=== PATIENT | female | born 1995 | race Two or more races ===

== ENCOUNTER 2020-05-09 03:23 | Emergency (ER) | payer MEDICAID, SELFPAY ==
[2020-05-09 04:38] VITALS: PULSE 70; RESP 18; TEMP 36.8; O2SAT 99; BMI 50.8
[2020-05-09 04:49] VITALS: BP 105/50
--- NOTE | 2020-05-09 04:54 | ED_ITS ---
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 this morning and patient states it is sharp and intermittent. She states that when the pain is strongest it is associated with nausea, dizzy, chills. Otherwise, she states she is currently menstruating and denies any urinary pain/ burning /frequency. She denies having similar symptoms in the past or any history of renal colic. Related Data Allergies Allergy/AdvReac Type Severity Reaction Status Date / Time No Known Allergies Allergy Unverified 04/03/20 17:49 Pt states no food/medication Allergy Unknown Uncoded 09/14/16 00:00 a Review of Systems Review of Systems Pertinent positives and negatives as stated in HPI 10 point review systems is otherwise negative. Physical Exam Vital Signs: Vital Signs: Vital Signs Temp Pulse Resp BP Pulse Ox 05/09/20 04:49 105/50 L 05/09/20 04:38 98.2 F 70 18 99 Body Mass Index 50.8 VITAL SIGNS: Reviewed. GENERAL: Well developed, well nourished, in no acute distress. HEAD: Normocephalic/atraumatic, EYES: PERRLA, EOMI intact without pain, no nystagmus/pallor/icterus noted EARS: Ext canals without abnormality, TMs non-bulging and non-erythematous NOSE: Nares patent bilateral OROPHARYNX: no oral lesions noted, posterior pharynx clear and non-erythematous without noted tonsillar enlargement/erythema/exudates NECK: Supple, no adenopathy LUNGS: Normal breath sounds. No adventitious sounds or accessory muscle use. SpO2<99> CARDIOVASCULAR: Regular rate and rhythm without noted murmurs, no JVD or lower extremity edema. ABDOMEN: obese, Soft, tenderness along the lower abdomen however maximal at right lower quadrant, non-distended with bowel sounds. No rigidity. No guarding. No palpable masses or hernias noted MUSCULOSKELETAL: No tenderness, deformities, or effusions noted on gross inspection. EXTREMITIES: No cyanosis, clubbing or edema. SKIN: Inspection of the skin reveals no rashes, ulcerations, jaundice, pallor, or petechiae. NEUROLOGIC: Alert and oriented x 4. Strength and sensation to light touch were grossly intact x 4. Course Course Course Narrative: This is a 25-year-old female with history and clinical presentation suggestive possible acute appendicitis, renal colic, but felt to be less likely diverticulitis / ectopic. On review of all investigations there is very slight leukocytosis with left shift, but no source identified on review of urinalysis or CT scan. There was a small amount of nonspecific free fluid in the right lower quadrant but appendix is read as normal and patient is currently menstruating, but possibility a stone that has passed or small ruptured ovarian cyst but the latter is less likely. On re-evaluation patient's pain has improved significantly and all results were discussed with her at bedside. She is stable for discharge to home with instructions to treat her pain with [id number] Tylenol and ibuprofen and provided with strict return precautions regarding fevers or worsening abdominal pain. MDM - Abdominal Pain Lab Data Result diagrams: 05/09/20 05:39 05/09/20 05:39 Labs: Lab Results 05/09/20 05/09/20 05/09/20 Range/Units 05:39 05:39 05:39 WBC 11.2 H (4.8-10.8) X10*3/uL RBC 4.42 (4.20-5.50) X10*6/uL Hgb 11.3 L (12.0-16.0) g/dl Hct 37.6 (37-47) % MCV 85.1 (80-98) fL MCH 25.6 L (27.0-33.0) pg MCHC 30.1 L (31.0-35.0) g/dl RDW 13.8 (11.0-16.0) % Plt Count 425 H (160-400) X10*3/uL MPV 9.4 (9.4-12.3) fL Immature Gran % (Auto) 0.3 (0.0-0.4) % Neut % (Auto) 86.0 H (45-73) % Lymph % (Auto) 9.0 L (20-40) % [place] % (Auto) 4.2 (2-11) % Eos % (Auto) 0.2 (0-4) % Baso % (Auto) 0.3 (0-2) % Lymph # (Auto) 1.0 L (1.2-4.9) X10*3/uL [place] # (Auto) 0.5 (0.1-1.2) X10*3/uL Eos # (Auto) 0.0 (0.0-0.4) X10*3/uL Baso # (Auto) 0.0 (0.0-0.2) X10*3/uL Abs Immat Gran (auto) 0.03 (0.00-0.03) X10*3/uL Absolute Neuts (auto) 9.7 H (2.0-8.3) X10*3/uL Absolute Nucleated RBC 0.000 (0.0-0.012) X10*3/uL Nucleated RBC % (auto) 0.0 (0.0-0.2) /100WBC Sodium 137 (135-145) mmol/L Potassium 4.4 (3.3-5.1) mmol/l Chloride 103 (96-108) mmol/L Carbon Dioxide 26 (22-29) mmol/L Anion Gap 12 (12-20) BUN 11 (9-16) mg/dL Creatinine 0.75 (0.5-1.4) mg/dL Estim Creat Clear Calc 153.9 Estimated GFR > 60 Random Glucose 125 H (60-115) mg/dL Calcium 9.0 (8.4-10.2) mg/dL Total Bilirubin 0.2 (0.0-1.0) mg/dL AST 16 (5-31) U/L ALT 14 (0-31) U/L Alkaline Phosphatase 138 H (39-117) U/L Total Protein 7.5 (6.5-8.0) g/dL Albumin 4.2 (3.5-5.0) g/dL Beta HCG, Quant < 2 mIU/mL Urine Color YELLOW Urine Appearance CLOUDY Urine pH 5.5 (5.0-8.0) Ur Specific [place] >= 1.030 H (1.005-1.025) Urine Protein NEG (NEG-TRACE) MG/DL Urine Glucose (UA) NEG (NEG) MG/DL Urine Ketones NEG (NEG) MG/DL Urine Blood 2+ H (NEG) Urine Nitrite NEG (NEG) Ur Leukocyte Esterase NEG (NEG) Urine RBC 76-150 H (0) /HPF Urine WBC 0-2 (0-4) /HPF Ur Squamous Epith Cells TRACE /LPF Urine Bacteria TRACE /LPF Urine Test NEGATIVE (NEGATIVE) Discharge Plan Discharge Clinical Impression: Abdominal pain in female Patient Disposition: Home, Self-Care Additional Instructions: 1. Tylenol 1000 mg, por v?a oral, cada 6 horas seg?n sea necesario para controlar el dolor. No exceda los 4000 mg en 24 horas. 2. ibuprofeno 400 mg, por v?a oral con leche o alimentos, cada 6 horas seg?n sea necesario para controlar el dolor. El paciente y / o la felicia reconocen que comprenden los resultados (seg?n corresponda), el diagn?stico, el plan de tratamiento, la necesidad de seguim iento y los s?ntomas que deber?an impulsar el regreso a la carmen de emergencias. Referrals: Lia Rosas MD [Primary Care Provider] - 2 days (Abdominal discomfort without CT findings.) [facility] Past Medical History Source: nursing notes reviewed Medical History Asthma Surgical History S/P cholecystectomy Social History Social History Alcohol intake: never Smoking Status: Never smoker Advance Directives: No
[2020-05-09 05:45] LABS: MANUAL DIFF FLAG NO
[2020-05-09 05:47] LABS: Basophils Percent Auto 0.3 % (0-2); Eosinophils Percent Auto 0.2 % (0-4); Hematocrit 37.6 % (37-47); Hemoglobin 11.3 g/dl (12.0-16.0); Imm Gran Abs Auto 0.03 X10*3/uL (0.00-0.03); Imm Gran Pct Auto 0.3 % (0.0-0.4); Mean Corpuscular HGB Conc 30.1 g/dl (31.0-35.0); Mean Corpuscular Hemoglobin 25.6 pg (27.0-33.0); Mean Corpuscular Volume 85.1 fL (80-98); Mean Platelet Volume 9.4 fL (9.4-12.3); Monocytes Absolute Auto 0.5 X10*3/uL (0.1-1.2); Monocytes Percent Auto 4.2 % (2-11); Neutrophils Absolute Auto 9.7 X10*3/uL (2.0-8.3); Platelet Count 425 X10*3/uL (160-400); Red Blood Count 4.42 X10*6/uL (4.20-5.50); Red Cell Distribution Width 13.8 % (11.0-16.0); White Blood Count 11.2 X10*3/uL (4.8-10.8)
--- NOTE | 2020-05-09 05:50 | PC.NURSE ---
IV ACCESS OBTAINED, BLOOD SPEC AND URINE SAMPLE SENT TO LAB FOR PROCESSING. URINE DARK YELLOW, CLEAR, NO SEDIMENT NOTED.
[2020-05-09 05:54] LABS: Glucose Urine UA NEG (NEG); Leukocyte Esterase Urine NEG (NEG); Nitrite Urine NEG (NEG); PH 5.5 (5.0-8.0); Specific Gravity - Urine >= 1.030 (1.005-1.025); Urine Blood 2+ (NEG); Urine Ketones NEG (NEG); Urine Protein NEG (NEG-TRACE)
[2020-05-09 05:58] LABS: Appearance Urine CLOUDY; Color Urine YELLOW
[2020-05-09 06:18] LABS: Bacteria Urine TRACE /LPF; Squamous Epithelial Cell Urine TRACE /LPF; UPreg QC Valid YES; Urine Pregnancy NEGATIVE (NEGATIVE); WBC Urine 0-2 /HPF (0-4)
[2020-05-09 06:23] LABS: Alanine Aminotransferase 14 U/L (0-31); Albumin Level 4.2 g/dL (3.5-5.0); Alkaline Phosphatase 138 U/L (39-117); Anion Gap 12 (12-20); Aspartate Amino Transferase 16 U/L (5-31); Bilirubin Total 0.2 mg/dL (0.0-1.0); Blood Urea Nitrogen 11 mg/dL (9-16); Carbon Dioxide 26 mmol/L (22-29); Chloride 103 mmol/L (96-108); Creatinine Clr Calc Pharmacy 153.9; Estimated Glomerular Filt Rate > 60; Glucose Random 125 mg/dL (60-115); Potassium 4.4 mmol/l (3.3-5.1); Sodium 137 mmol/L (135-145); Total Protein 7.5 g/dL (6.5-8.0)
--- NOTE | 2020-05-09 06:26 | CT_ITS ---
EXAMINATION: CT ABDOMEN AND PELVIS WITHOUT CONTRAST CLINICAL INFORMATION: Left flank pain COMPARISON: 01/08/2015 TECHNIQUE: Multidetector volumetric imaging was performed from the superior aspect of the liver through the pubic symphysis. Sagittal and coronal reformatted images were obtained on the technologist's workstation. This CT examination was performed using dose optimization techniques as appropriate, variously including the following: *Automated exposure control *Adjustment of mA and/or kV according to patient size (this includes techniques or standardized protocols for targeted exams where dose is matched to indication/reason for exam; i.e. extremities or head) *Use of iterative reconstruction technique DLP: 1208 mGy-cm FINDINGS: LUNG BASES: The visualized lung bases are unremarkable. LIVER, GALLBLADDER, AND BILIARY TREE: The liver is normal in size, shape, and attenuation. No focal hepatic lesion or biliary ductal dilatation is present. Patient is status post cholecystectomy. PANCREAS: Unremarkable. SPLEEN: Unremarkable. ADRENAL GLANDS: Unremarkable. KIDNEYS AND URETERS: The kidneys are normal in size, shape, and attenuation. No hydronephrosis, hydroureter, or calculi seen. No perinephric stranding. BLADDER: Unremarkable. GASTROINTESTINAL TRACT: The small and large bowel are unremarkable. The appendix is unremarkable. Small amount of fluid is present in the right lower quadrant. No free air is seen. ABDOMINAL WALL: No significant hernia is appreciated. LYMPH NODES: Normal. VASCULAR: Unremarkable. PELVIC VISCERA: Redemonstrated fibroid uterus, suboptimally assessed without intravenous contrast. OSSEOUS STRUCTURES: Unremarkable. CT/CT abdomen pelvis wo con IMPRESSION: 1. No left-sided hydronephrosis or calculus. 2. Small amount of nonspecific free fluid in the right lower quadrant, of uncertain etiology. 3. Fibroid uterus.
[2020-05-09 06:31] LABS: HCG Quantitative < 2 mIU/mL
[2020-05-09 07:57] VITALS: BP 126/57; PULSE 77; RESP 15; TEMP 36.7; O2SAT 99
== END 2020-05-09 09:00 | disposition home or self-care (01) ==
PROVIDERS: Emergency Provider Student in an Organized Health Care Education/Training Program; PCP Family Medicine
DX: R10.30 Lower abdominal pain, unspecified (principal)
CPT/HCPCS: 36415; 74176; 80053; 81001; 81003; 81025; 84702; 85025; 99284

== ENCOUNTER 2020-06-09 10:24 | Outpatient (REF) | payer MEDICAID, SELFPAY ==
[2020-06-09 14:16] LABS: CT PCR NOT DETECTED (Not Detect.); NG PCR NOT DETECTED (Not Detect.)
== END 2020-06-09 10:25 | disposition home or self-care (01) ==
LOC: HO.LAB 10:24
PROVIDERS: PCP Internal Medicine; Visit Provider Obstetrics & Gynecology
DX: D21.9 Benign neoplasm of connective and other soft tissue, unspecified (principal); N92.1 Excessive and frequent menstruation with irregular cycle
CPT/HCPCS: 87491; 87591; 99212

== ENCOUNTER 2020-07-21 13:32 | Outpatient (REF) | payer MEDICAID, SELFPAY ==
--- NOTE | 2020-07-21 13:35 | US_ITS ---
EXAMINATION: US PELVIS COMPLETE US TRANSVAGINAL CLINICAL INFORMATION: Excessive and frequent menstruation with irregular cycle. COMPARISON: None TECHNIQUE: Transabdominal and transvaginal ultrasound of the pelvis. FINDINGS: The uterus is retroverted and anteflexed with multiple hypoechoic lesions consistent with fibroids that measure, as follows. 1. Lesion in the right fundus measures 5.9 x 5.2 x 6.2 cm. Previously, it measured 2.8 x 2.3 x 2.9 cm. 2. Lesion in the left fundus measures 5.3 x 5.8 x 6.0 cm. Previously, it measured 3.0 x 3.2 x 3.2 cm. 3. Lesion in the right posterior body of the uterus measures 4.9 x 3.8 x 3.7 cm. Previously, it measured 5.4 x 4.4 x 5.3 cm. 4. Lesion in the left posterior body of the uterus measures 4.0 x 2.8 x 4.3 cm. Previously, measured 5.5 x 3.7 x 4.7 cm. Endometrial thickness is 0.9 cm. There is an arcuate appearance of the endometrium. Right ovary measures 3.1 x 2.2 x 2.6 cm and volume 9.2 mL. Previously, it measured 4.0 x 2.4 x 2.2 cm and volume 11.1 mL. Left ovary measures 4.2 x 2.3 x 3.1 cm and volume 15.4 mL. Previously, it measured 4.4 x 1.9 x 2.2 cm and volume 9.8 mL. There is a small corpus luteal cyst measuring 2.3 x 1.9 x 2.3 cm. There is no free fluid in the cul-de-sac. US/US pelvic complete IMPRESSION: Multiple uterine fibroids. Previously seen #3 fibroid is not seen today. Corpus luteal cyst left ovary. The right ovary is unremarkable.
== END 2020-07-21 13:33 | disposition home or self-care (01) ==
LOC: HO.US 13:32
PROVIDERS: Visit Provider Obstetrics & Gynecology
DX: D21.9 Benign neoplasm of connective and other soft tissue, unspecified (principal); N92.1 Excessive and frequent menstruation with irregular cycle
CPT/HCPCS: 76830; 76856

== ENCOUNTER → 2020-09-02 11:59 | Outpatient (BNVA) | payer MEDICAID, SELFPAY | PROVIDERS: PCP Internal Medicine; Visit Provider Obstetrics & Gynecology | DX: D21.9 Benign neoplasm of connective and other soft tissue, unspecified (principal); N92.1 Excessive and frequent menstruation with irregular cycle | CPT/HCPCS: 99212 ==

== ENCOUNTER → 2020-11-26 14:07 | Outpatient (BNVA) | payer MEDICAID, SELFPAY | PROVIDERS: Visit Provider Obstetrics & Gynecology | DX: O99.341 Other mental disorders complicating pregnancy, first trimester (principal); F41.9 Anxiety disorder, unspecified; D21.9 Benign neoplasm of connective and other soft tissue, unspecified; J45.909 Unspecified asthma, uncomplicated | CPT/HCPCS: 99212 ==

== ENCOUNTER 2020-11-27 13:46 | Outpatient (REF) | payer MEDICAID, SELFPAY ==
--- NOTE | ~2020-11-27 | US_ITS ---
EXAMINATION: US OBSTETRICAL ULTRASOUND CLINICAL INFORMATION: First trimester for dating. COMPARISON: None. LMP: 10/16/2020. TECHNIQUE: Transabdominal ultrasound imaging of the pelvis is performed. FINDINGS: On transabdominal ultrasound the uterus is anteverted. There is no intrauterine gestational sac or pole seen. The endometrium is thickened measuring 3.4 cm. There is anechoic cyst in the left ovary measuring 2.3 x 2.4 x 2.0 cm, likely corpus luteal cyst. There is additional anechoic area in the left adnexa measuring 1.3 x 1.3 x 0.7 cm with adjacent distal reaction suspicious for ectopic . There is no free fluid. US/US OB <= 14 weeks fetus IMPRESSION: No intrauterine visualized. There is a left ovary and cyst. There is a left adnexal sac with decidual reaction suspicious for an ectopic. Results were called to referring physician Dr Jeffrey Cabral by the technologist.
[2020-11-27 17:01] LABS: HCG Quantitative 725 mIU/mL
== END 2020-11-27 13:47 | disposition home or self-care (01) ==
LOC: HO.US 13:46
PROVIDERS: PCP Internal Medicine; Visit Provider Obstetrics & Gynecology
DX: Z34.90 Encounter for supervision of normal pregnancy, unspecified, unspecified trimester (principal)
CPT/HCPCS: 36415; 76801; 84443; 84702

== ENCOUNTER → 2020-11-28 10:12 | Outpatient (BNVA) | payer MEDICAID, SELFPAY | PROVIDERS: Visit Provider Obstetrics & Gynecology | DX: Z32.00 Encounter for pregnancy test, result unknown (principal) | CPT/HCPCS: 99212 ==

== ENCOUNTER 2020-11-29 08:43 | Outpatient (REF) | payer MEDICAID, SELFPAY ==
[2020-11-29 09:48] LABS: HCG Quantitative 978 mIU/mL
== END 2020-11-29 08:44 | disposition home or self-care (01) ==
LOC: HO.LAB 08:43
PROVIDERS: PCP Internal Medicine; Visit Provider Obstetrics & Gynecology
DX: Z32.00 Encounter for pregnancy test, result unknown (principal)
CPT/HCPCS: 36415; 84702

== ENCOUNTER 2020-12-01 08:30 | Outpatient (REF) | payer MEDICAID, SELFPAY ==
--- NOTE | ~2020-12-01 | US_ITS ---
EXAMINATION: FIRST TRIMESTER OB ULTRASOUND CLINICAL INFORMATION: Question ectopic COMPARISON: Previous OB ultrasound 11/27/[address] of the abdomen and pelvis April 2020 and pelvic ultrasound July 2020 TECHNIQUE: Transabdominal and transvaginal first trimester OB ultrasound. Transvaginal exam was performed for better visualization of the uterus and ovaries. FINDINGS: The uterus is enlarged and measures 12 x 8.2 x 10 cm in dimension. There is a solid mass exophytic to the right uterine fundus suggestive of a pedunculated fibroid that measures 7.8 x 5.8 x 9.4 cm. There is a second posterior uterine body 4.4 x 3.4 x 3.8 cm fibroid. There appears to be an arcuate type uterus. Endometrial thickness measures 1.5 cm. No intrauterine is seen. The right ovary is not seen. The left ovary measures 3.7 x 3.4 x 2.7 cm. There is a 2.7 x 2.7 x 2.3 cm left ovarian cyst. In between the left ovary and uterus there is a complex thick-walled adnexal cyst with very bright echogenic wall that measures 1.8 x 1.7 x 1.6 cm. This is increased in size from 1 x 0.9 x 0.8 cm. This is avascular. There is a small amount of fluid seen in the left pelvis which is new. US/US OB pelvic and transvaginal IMPRESSION: Enlarged fibroid uterus. No intrauterine seen. Interval increase in size in thick-walled left adnexal cyst measuring 1.8 x 1.7 x 1.6 cm questionable for ectopic . New small amount of fluid in the left pelvis.
[2020-12-01 10:11] LABS: HCG Quantitative 1557 mIU/mL
[2020-12-01 13:57] LABS: Hematocrit 37.9 % (37-47); Hemoglobin 11.7 g/dl (12.0-16.0); Mean Corpuscular HGB Conc 30.9 g/dl (31.0-35.0); Mean Corpuscular Hemoglobin 27.2 pg (27.0-33.0); Mean Corpuscular Volume 88.1 fL (80-98); Mean Platelet Volume 9.1 fL (9.4-12.3); Platelet Count 383 X10*3/uL (160-400); Red Cell Distribution Width 15.2 % (11.0-16.0); White Blood Count 7.5 X10*3/uL (4.8-10.8)
[2020-12-01 14:31] LABS: Alanine Aminotransferase 37 U/L (0-31); Aspartate Amino Transferase 25 U/L (5-31); Estimated Glomerular Filt Rate > 60
[2020-12-01 14:38] LABS: HCG Quantitative 1552 mIU/mL
== END 2020-12-01 08:31 | disposition home or self-care (01) ==
LOC: HO.LAB 08:30
PROVIDERS: PCP Internal Medicine; Visit Provider Obstetrics & Gynecology
DX: N83.202 Unspecified ovarian cyst, left side (principal)
CPT/HCPCS: 36415; 76801; 76817; 82565; 84450; 84460; 84702; 85027; 86850; 86900; 86901; 99212

== ENCOUNTER 2021-04-07 13:20 | Outpatient (REF) | payer MEDICAID, SELFPAY | END 2021-04-07 13:21 | disposition home or self-care (01) | LOC: HO.LAB 13:20 | PROVIDERS: PCP Internal Medicine; Visit Provider Advanced Practice Midwife | DX: Z01.419 Encounter for gynecological examination (general) (routine) without abnormal findings (principal) | CPT/HCPCS: 88142 ==

== ENCOUNTER 2021-04-28 10:17 | Outpatient (REF) | payer MEDICAID, SELFPAY ==
--- NOTE | ~2021-04-28 | XR_ITS ---
EXAMINATION: XR HIP, LEFT CLINICAL INFORMATION: Left hip pain. COMPARISON: Most recent CT abdomen/pelvis dated 05/09/2020. TECHNIQUE: Two views of the left hip. FINDINGS: No fracture or dislocation. No joint space narrowing or marginal osteophytes. No osseous erosion. No abnormal soft tissue calcification. XR/XR hip LT min 2V IMPRESSION: Unremarkable examination.
== END 2021-04-28 10:18 | disposition home or self-care (01) ==
LOC: HO.XRAY 10:17
PROVIDERS: PCP Internal Medicine; Visit Provider Internal Medicine
DX: M25.552 Pain in left hip (principal)
CPT/HCPCS: 73502

== ENCOUNTER 2021-11-09 21:26 | Emergency (ER) | payer MEDICAID, SELFPAY ==
[2021-11-09 21:32] VITALS: BP 143/85; PULSE 94; RESP 18; TEMP 36.6; O2SAT 100; BMI 49.8
[2021-11-09 22:00] LABS: Basophils Percent Auto 0.5 % (0-2); Eosinophils Absolute Auto 0.1 X10*3/uL (0.0-0.4); Eosinophils Percent Auto 1.4 % (0-4); Hematocrit 39.3 % (37.0-47.0); Hemoglobin 12.8 g/dl (12.0-16.0); Imm Gran Abs Auto 0.03 X10*3/uL (0.00-0.03); Imm Gran Pct Auto 0.3 % (0.0-0.4); Lymphocytes Absolute Auto 2.4 X10*3/uL (1.2-4.9); Lymphocytes Percent Auto 27.6 % (20-40); MANUAL DIFF FLAG NO; Mean Corpuscular HGB Conc 32.6 g/dl (31.0-35.0); Mean Corpuscular Hemoglobin 29.8 pg (27.0-33.0); Mean Corpuscular Volume 91.6 fL (80.0-98.0); Mean Platelet Volume 9.5 fL (9.4-12.3); Monocytes Absolute Auto 0.7 X10*3/uL (0.1-1.2); Monocytes Percent Auto 8.2 % (2-11); Neutrophils Absolute Auto 5.3 x10*3/uL (2.0-8.3); Platelet Count 386 X10*3/uL (160-400); Red Blood Count 4.29 X10*6/uL (4.20-5.50); Red Cell Distribution Width 12.2 % (11.0-16.0); White Blood Count 8.6 X10*3/uL (4.8-10.8)
[2021-11-09 22:01] LABS: Appearance Urine HAZY; Color Urine YELLOW; Glucose Urine UA NEG (NEG); Leukocyte Esterase Urine 1+ (NEG); Nitrite Urine NEG (NEG); UACC Culture Trigger YES; Urine Blood 2+ (NEG); Urine Ketones NEG (NEG); Urine Protein NEG (NEG-TRACE)
[2021-11-09 22:15] LABS: Alanine Aminotransferase 12 U/L (0-31); Alkaline Phosphatase 139 U/L (39-117); Anion Gap 10 (12-20); Aspartate Amino Transferase 14 U/L (5-31); Bilirubin Total 0.2 mg/dL (0.0-1.0); Blood Urea Nitrogen 12 mg/dL (9-16); Calcium 9.6 mg/dL (8.4-10.2); Carbon Dioxide 30 mmol/L (22-29); Chloride 104 mmol/L (96-108); Creatinine Clr Calc Pharmacy 154.7; Estimated Glomerular Filt Rate > 60; Glucose Random 104 mg/dL (60-115); Potassium 3.9 mmol/L (3.3-5.1); Sodium 140 mmol/L (135-145); Total Protein 7.2 g/dL (6.5-8.0)
[2021-11-09 22:18] LABS: RBC Urine 50-75 /HPF (0); UACC CULT YES
[2021-11-09 22:19] LABS: Bacteria Urine TRACE /LPF; Squamous Epithelial Cell Urine TRACE /LPF
--- NOTE | 2021-11-09 22:43 | ED.GENADULT ---
HPI - General Adult General Chief complaint: General Medical Stated complaint: pain in lower back Time Seen by Provider: 11/09/21 22:43 Source: patient Mode of arrival: ambulatory Limitations: no limitations History of Present Illness HPI narrative: Patient has been having lower back pain for last 2 - 3 days got worse today along with has some problem in urination no frequency no blood in the urine no history of kidney stone patient currently on her period no fever no chills pain dull ache radiating the front slight nausea no vomiting no diarrhea Related Data Home Medications Medication Instructions Recorded Confirmed clonazepam 1 mg tablet 1 mg PO BEDTIME 06/09/20 04/07/21 trazodone 100 mg tablet 100 mg PO DAILY 11/26/20 04/07/21 fluoxetine 20 mg capsule 40 mg PO DAILY 04/07/21 04/07/21 Previous Rx's Medication Instructions Recorded vit no.95-ferrous 1 tab PO DAILY #30 tab 04/07/21 fumarate 28 mg-folic acid 800 mcg tablet () cefpodoxime 200 mg tablet 200 mg PO BID #14 tab 11/09/21 tramadol 50 mg tablet 50 mg PO Q6H PRN #20 tab 11/09/21 Allergies Allergy/AdvReac Type Severity Reaction Status Date / Time No Known Allergies Allergy Verified 11/09/21 21:32 Review of Systems Review of Systems: Yes all other systems are reviewed and are negative REPLACED BY [facility] Past Medical History Medical History Asthma Insomnia Obesity Surgical History S/P cholecystectomy Social History Social History Alcohol intake: never Advance Directives: No Advance Directives Information Provided: No Patient : No Sexual orientation: Straight/Heterosexual Gender identity: Female Physical Exam ED Vital Signs: Vital Signs - 24 hr 11/09/21 21:32 Temperature 97.9 F Pulse Rate 94 Respiratory Rate 18 Blood Pressure 143/85 H Pulse Oximetry 100 BMI result Body Mass Index 49.8 Appearance: Alert. Oriented X3. No acute distress. ENT: Pharynx normal. Oral Mucosa moist Neck: Normal inspection. Neck supple. CVS: Normal heart rate and rhythm. Pulses normal. Respiratory: No respiratory distress. Equal air entry bilateral, no wheezing/rales/rhonchi Abdomen: Soft and nontender. Bowel sounds are present, no mass palpable, no CVA tenderness Skin: Skin warm and dry. Normal skin color. Normal skin turgor. back: No focal spinal tenderness diffuse lumbar paraspinal tenderness good range of movement SLR negative bilaterally Extremities: No lower extremity edema. No calf tenderness Neuro: Oriented X 3. Medical Decision Making MDM Narrative Medical decision making narrative: Patient not significant back pain urine showed few WBCs along with red cells with request is positive likely she has mild UTI will discharge patient home on Cefpodoxime Lab Data Lab results reviewed: Yes I reviewed the patient's lab results. Result diagrams: 11/09/21 21:43 11/09/21 21:43 Labs: Lab Results 11/09/21 11/09/21 11/09/21 Range/Units 21:43 21:43 21:43 WBC 8.6 (4.8-10.8) X10*3/uL RBC 4.29 (4.20-5.50) X10*6/uL Hgb 12.8 (12.0-16.0) g/dl Hct 39.3 (37.0-47.0) % MCV 91.6 (80.0-98.0) fL MCH 29.8 (27.0-33.0) pg MCHC 32.6 (31.0-35.0) g/dl RDW 12.2 (11.0-16.0) % Plt Count 386 (160-400) X10*3/uL MPV 9.5 (9.4-12.3) fL Immature Gran % (Auto) 0.3 (0.0-0.4) % Neut % (Auto) 62.0 (45-73) % Lymph % (Auto) 27.6 (20-40) % [place] % (Auto) 8.2 (2-11) % Eos % (Auto) 1.4 (0-4) % Baso % (Auto) 0.5 (0-2) % Lymph # (Auto) 2.4 (1.2-4.9) X10*3/uL [place] # (Auto) 0.7 (0.1-1.2) X10*3/uL Eos # (Auto) 0.1 (0.0-0.4) X10*3/uL Baso # (Auto) 0.0 (0.0-0.2) X10*3/uL Abs Immat Gran (auto) 0.03 (0.00-0.03) X10*3/uL Absolute Neuts (auto) 5.3 (2.0-8.3) x10*3/uL Absolute Nucleated RBC 0.000 (0.0-0.012) X10*3/uL Nucleated RBC % (auto) 0.0 (0.0-0.2) /100WBC Sodium 140 (135-145) mmol/L Potassium 3.9 (3.3-5.1) mmol/L Chloride 104 (96-108) mmol/L Carbon Dioxide 30 H (22-29) mmol/L Anion Gap 10 L (12-20) BUN 12 (9-16) mg/dL Creatinine 0.73 (0.5-1.4) mg/dL Estim Creat Clear Calc 154.7 Estimated GFR > 60 Random Glucose 104 (60-115) mg/dL Calcium 9.6 D (8.4-10.2) mg/dL Total Bilirubin 0.2 (0.0-1.0) mg/dL AST 14 D (5-31) U/L ALT 12 (0-31) U/L Alkaline Phosphatase 139 H (39-117) U/L Total Protein 7.2 (6.5-8.0) g/dL Albumin 4.0 (3.5-5.0) g/dL Urine Color YELLOW Urine Appearance HAZY Urine pH 6.0 (5.0-8.0) Ur Specific [place] 1.020 (1.005-1.025) Urine Protein NEG (NEG-TRACE) MG/DL Urine Glucose (UA) NEG (NEG) MG/DL Urine Ketones NEG (NEG) MG/DL Urine Blood 2+ H (NEG) Urine Nitrite NEG (NEG) Ur Leukocyte Esterase 1+ H (NEG) Urine RBC 50-75 H (0) /HPF Urine WBC 10-14 H (0-4) /HPF Ur Squamous Epith Cells TRACE /LPF Urine Bacteria TRACE /LPF Urine Test (NEGATIVE) 11/09/21 Range/Units 21:43 WBC (4.8-10.8) X10*3/uL RBC (4.20-5.50) X10*6/uL Hgb (12.0-16.0) g/dl Hct (37.0-47.0) % MCV (80.0-98.0) fL MCH (27.0-33.0) pg MCHC (31.0-35.0) g/dl RDW (11.0-16.0) % Plt Count (160-400) X10*3/uL MPV (9.4-12.3) fL Immature Gran % (Auto) (0.0-0.4) % Neut % (Auto) (45-73) % Lymph % (Auto) (20-40) % [place] % (Auto) (2-11) % Eos % (Auto) (0-4) % Baso % (Auto) (0-2) % Lymph # (Auto) (1.2-4.9) X10*3/uL [place] # (Auto) (0.1-1.2) X10*3/uL Eos # (Auto) (0.0-0.4) X10*3/uL Baso # (Auto) (0.0-0.2) X10*3/uL Abs Immat Gran (auto) (0.00-0.03) X10*3/uL Absolute Neuts (auto) (2.0-8.3) x10*3/uL Absolute Nucleated RBC (0.0-0.012) X10*3/uL Nucleated RBC % (auto) (0.0-0.2) /100WBC Sodium (135-145) mmol/L Potassium (3.3-5.1) mmol/L Chloride (96-108) mmol/L Carbon Dioxide (22-29) mmol/L Anion Gap (12-20) BUN (9-16) mg/dL Creatinine (0.5-1.4) mg/dL Estim Creat Clear Calc Estimated GFR Random Glucose (60-115) mg/dL Calcium (8.4-10.2) mg/dL Total Bilirubin (0.0-1.0) mg/dL AST (5-31) U/L ALT (0-31) U/L Alkaline Phosphatase (39-117) U/L Total Protein (6.5-8.0) g/dL Albumin (3.5-5.0) g/dL Urine Color Urine Appearance Urine pH (5.0-8.0) Ur Specific [place] (1.005-1.025) Urine Protein (NEG-TRACE) MG/DL Urine Glucose (UA) (NEG) MG/DL Urine Ketones (NEG) MG/DL Urine Blood (NEG) Urine Nitrite (NEG) Ur Leukocyte Esterase (NEG) Urine RBC (0) /HPF Urine WBC (0-4) /HPF Ur Squamous Epith Cells /LPF Urine Bacteria /LPF Urine Test NEGATIVE (NEGATIVE) Discharge Plan Discharge Clinical Impression: UTI (urinary tract infection), Back pain Patient Disposition: Home, Self-Care Instructions: Urinary Tract Infection in Women (ED), Acute Low Back Pain (ED) Additional Instructions: Drink plenty of fluids Take antibiotics as prescribed Pain medication as prescribed Follow with PCP if not better Prescriptions: New cefpodoxime 200 mg tablet 200 mg PO BID Qty: 14 0RF Rx Instructions: must administer with a meal/food tramadol 50 mg tablet 50 mg PO Q6H PRN (Reason: pain) Qty: 20 0RF No Action clonazepam 1 mg tablet 1 mg PO BEDTIME 0RF Rx Instructions: administer 30 minutes before bedtime trazodone 100 mg tablet 100 mg PO DAILY 0RF fluoxetine 20 mg capsule 40 mg PO DAILY 0RF PNV cmb#95-ferrous fumarate-FA [] 28 mg iron- 800 mcg tablet 1 tab PO DAILY Qty: 30 11RF Interventions: ED Discharge Assessment Last Done: 11/09/21 23:48 Discharge Date/Time: 11/09/21 23:48
[2021-11-09 23:32] LABS: UPreg QC Valid YES; Urine Pregnancy NEGATIVE (NEGATIVE)
[2021-11-09] MEDS: Ibuprofen 600 MG TABLET PO (23:33)
== END 2021-11-09 23:48 | disposition home or self-care (01) ==
PROVIDERS: Emergency Provider Internal Medicine; PCP Internal Medicine
DX: N39.0 Urinary tract infection, site not specified (principal); M54.50 Low back pain, unspecified; R33.9 Retention of urine, unspecified; Z79.899 Other long term (current) drug therapy
CPT/HCPCS: 36415; 80053; 81001; 81025; 85025; 87086; 87088; 87186; 99283

== ENCOUNTER 2021-11-11 08:24 | Emergency (ER) | payer MEDICAID, SELFPAY ==
--- NOTE | ~2021-11-11 | CT_ITS ---
EXAMINATION: CT ABDOMEN AND PELVIS WITH CONTRAST CLINICAL INFORMATION: Severe lower abdominal pain. COMPARISON: 05/09/2020 CT scan of the abdomen and pelvis. TECHNIQUE: Multidetector volumetric images were obtained from the superior aspect of the liver through the pubic symphysis following administration 85 mL of Omnipaque 350 intravenous contrast. Sagittal and coronal reformatted images were obtained on the technologist's workstation. Oral contrast: No This CT examination was performed using dose optimization techniques as appropriate, variously including the following: *Automated exposure control *Adjustment of mA and/or kV according to patient size (this includes techniques or standardized protocols for targeted exams where dose is matched to indication/reason for exam; i.e. extremities or head) *Use of iterative reconstruction technique DLP: 1626 mGy-cm FINDINGS: LUNG BASES: The visualized lung bases are unremarkable. LIVER, GALLBLADDER, AND BILIARY TREE: No hepatic abnormality. Status post cholecystectomy. PANCREAS: Unremarkable. SPLEEN: Unremarkable. ADRENAL GLANDS: Unremarkable. KIDNEYS AND URETERS: The kidneys are normal in size, shape, and attenuation. No hydronephrosis, hydroureter, or calculi seen. No perinephric stranding. BLADDER: Unremarkable. GASTROINTESTINAL TRACT: The stomach, small bowel and appendix are unremarkable. The colon and rectum are unremarkable. ABDOMINAL WALL: No significant hernia is appreciated. LYMPH NODES: No lymphadenopathy. VASCULAR: Unremarkable. PELVIC VISCERA: Enlarged fibroid uterus without significant change. Large subserosal fibroid off of the left anterior fundus is again seen demonstrating similar size measuring approximately 7.1 x 5.0 x 7.1 cm (image 77, series 3; image 129, series 6). No significant adnexal abnormality. OSSEOUS STRUCTURES: Unremarkable. CT/CT abdomen pelvis w con IMPRESSION: 1. No acute intra-abdominal/pelvic abnormality to explain the patient's pain. 2. Enlarged fibroid uterus without significant change could be a source of the patient's discomfort. Fleischner guidelines were followed.
--- NOTE | 2021-11-11 08:41 | ED_ITS ---
HPI - Abdominal Pain General Chief Complaint: Abdominal Pain Stated Complaint: Abd pain Time Seen by Provider: 11/11/21 08:41 Source: patient Mode of arrival: ambulatory Limitations: no limitations History of Present Illness HPI narrative: 26 y/o female with recently diagnosed UTI 11/09 coming back to the ER with wo rsening lower abdominal pain. She was prescribed cefpodoxime and reports she has been taking it as prescribed. She states she has mild residual dysuria but overall improving. She reports last night she started having waves of severe pain in her lower abdomen, radiate across from the right to the left. She states they are severe 10/10 and sharp. She denies vomiting or diarrhea but reports nausea. LMP last week. Denies vaginal discharge or concern for STI. MD elicited complaint: abdominal pain Pertinent past history: past UTI Onset (ago): day(s) (1) Pain Consistency: intermittent Location: RLQ and LLQ Severity: severe Pain scale (0-10): 10 Quality: cramping and sharp Radiation: none Migration to: no migration Exacerbating factors: nothing Relieving factors: nothing Associated symptoms: nausea Related Data Date of Last Menstrual Period: 11/01/21 Home Medications Medication Instructions Recorded Confirmed clonazepam 1 mg tablet 1 mg PO BEDTIME 06/09/20 04/07/21 trazodone 100 mg tablet 100 mg PO DAILY 11/26/20 04/07/21 fluoxetine 20 mg capsule 40 mg PO DAILY 04/07/21 04/07/21 Previous Rx's Medication Instructions Recorded vit no.95-ferrous 1 tab PO DAILY #30 tab 04/07/21 fumarate 28 mg-folic acid 800 mcg tablet () cefpodoxime 200 mg tablet 200 mg PO BID #14 tab 11/09/21 tramadol 50 mg tablet 50 mg PO Q6H PRN #20 tab 11/09/21 naproxen 500 mg tablet 500 mg PO BID PRN #14 tab 11/11/21 Allergies Allergy/AdvReac Type Severity Reaction Status Date / Time No Known Allergies Allergy Verified 11/11/21 08:54 Review of Systems Review of Systems Constitutional: No Fever, No Chills ENT/Mouth: No sore throat, No Rhinorrhea, No Swallowing Difficulty Eyes: No Eye Pain, No Swelling, No Redness Cardiovascular: No Chest Pain, No SOB, No Orthopnea, No Edema Respiratory: No Cough, No Sputum, No Wheezing, No dyspnea Gastrointestinal: + Nausea, No Vomiting, No Diarrhea, + abdominal Pain, No Hematochezia, No Melena Genitourinary: + Dysuria, No Urinary Frequency, No Hematuria Musculoskeletal: No joint pain, No Myalgias Skin: No Skin Lesions, No rash Neuro: No Weakness, No Numbness, No Dizziness, No Headache Psych: No Anxiety/Panic, No Depression Heme/Lymph: No Bruising, No Lymphadenopathy Endocrine: No Polyuria, No Polydipsia [facility] Past Medical History Medical History Asthma Insomnia Obesity Surgical History S/P cholecystectomy Date of Last Menstrual Period: 11/01/21 Social History Social History Alcohol intake: never Advance Directives: No Advance Directives Information Provided: No Sexual orientation: Straight/Heterosexual Gender identity: Female Physical Exam ED Vital Signs: Vital Signs - 24 hr 11/11/21 08:55 11/11/21 09:08 11/11/21 12:00 Temperature 98.2 F 98.0 F Pulse Rate 88 87 66 Respiratory Rate 20 16 16 Blood Pressure 134/85 127/63 125/63 Pulse Oximetry 98 99 100 BMI result Body Mass Index 49.8 Course Course Course Narrative: 26 y/o female with recently diagnosed UTI presenting with worsening lower abdominal pain since yesterday. Nauseated but not vomiting or having diarrhea, no fever or chills. Reevaluation(s) Reevaluation #1: UA improving. Labs unremarkable. CT scan with no acute findings, enlarged uterus noted avoids peer appendix is normal. No evidence of obstruction. Her pain is improved. She is stable for discharge home with NSAID a follow-up with her OBGYN. MDM - Abdominal Pain Lab Data Result diagrams: 11/11/21 09:07 11/11/21 09:07 Labs: Lab Results 11/11/21 11/11/21 11/11/21 Range/Units 08:52 08:52 09:07 WBC 7.7 (4.8-10.8) X10*3/uL RBC 4.19 L (4.20-5.50) X10*6/uL Hgb 12.3 (12.0-16.0) g/dl Hct 37.9 (37.0-47.0) % MCV 90.5 (80.0-98.0) fL MCH 29.4 (27.0-33.0) pg MCHC 32.5 (31.0-35.0) g/dl RDW 12.2 (11.0-16.0) % Plt Count 352 (160-400) X10*3/uL MPV 9.3 L (9.4-12.3) fL Immature Gran % (Auto) 0.3 (0.0-0.4) % Neut % (Auto) 71.7 (45-73) % Lymph % (Auto) 19.5 L (20-40) % [place] % (Auto) 6.9 (2-11) % Eos % (Auto) 1.2 (0-4) % Baso % (Auto) 0.4 (0-2) % Lymph # (Auto) 1.5 (1.2-4.9) X10*3/uL [place] # (Auto) 0.5 (0.1-1.2) X10*3/uL Eos # (Auto) 0.1 (0.0-0.4) X10*3/uL Baso # (Auto) 0.0 (0.0-0.2) X10*3/uL Abs Immat Gran (auto) 0.02 (0.00-0.03) X10*3/uL Absolute Neuts (auto) 5.5 (2.0-8.3) x10*3/uL Absolute Nucleated RBC 0.000 (0.0-0.012) X10*3/uL Nucleated RBC % (auto) 0.0 (0.0-0.2) /100WBC Sodium (135-145) mmol/L Potassium (3.3-5.1) mmol/L Chloride (96-108) mmol/L Carbon Dioxide (22-29) mmol/L Anion Gap (12-20) BUN (9-16) mg/dL Creatinine (0.5-1.4) mg/dL Estim Creat Clear Calc Estimated GFR Random Glucose (60-115) mg/dL Calcium (8.4-10.2) mg/dL Magnesium (1.6-2.6) mg/dL Total Bilirubin (0.0-1.0) mg/dL Direct Bilirubin (0.0-0.5) mg/dL AST (5-31) U/L ALT (0-31) U/L Alkaline Phosphatase (39-117) U/L Total Protein (6.5-8.0) g/dL Albumin (3.5-5.0) g/dL Urine Color YELLOW Urine Appearance CLEAR Urine pH 7.0 (5.0-8.0) Ur Specific [place] 1.010 (1.005-1.025) Urine Protein NEG (NEG-TRACE) MG/DL Urine Glucose (UA) NEG (NEG) MG/DL Urine Ketones NEG (NEG) MG/DL Urine Blood NEG (NEG) Urine Nitrite NEG (NEG) Ur Leukocyte Esterase TRACE H (NEG) Urine RBC 0 (0) /HPF Urine WBC 1-4 (0-4) /HPF Ur Squamous Epith Cells 2+ /LPF Urine Bacteria NONE /LPF Urine Test NEGATIVE (NEGATIVE) 11/11/21 Range/Units 09:07 WBC (4.8-10.8) X10*3/uL RBC (4.20-5.50) X10*6/uL Hgb (12.0-16.0) g/dl Hct (37.0-47.0) % MCV (80.0-98.0) fL MCH (27.0-33.0) pg MCHC (31.0-35.0) g/dl RDW (11.0-16.0) % Plt Count (160-400) X10*3/uL MPV (9.4-12.3) fL Immature Gran % (Auto) (0.0-0.4) % Neut % (Auto) (45-73) % Lymph % (Auto) (20-40) % [place] % (Auto) (2-11) % Eos % (Auto) (0-4) % Baso % (Auto) (0-2) % Lymph # (Auto) (1.2-4.9) X10*3/uL [place] # (Auto) (0.1-1.2) X10*3/uL Eos # (Auto) (0.0-0.4) X10*3/uL Baso # (Auto) (0.0-0.2) X10*3/uL Abs Immat Gran (auto) (0.00-0.03) X10*3/uL Absolute Neuts (auto) (2.0-8.3) x10*3/uL Absolute Nucleated RBC (0.0-0.012) X10*3/uL Nucleated RBC % (auto) (0.0-0.2) /100WBC Sodium 138 (135-145) mmol/L Potassium 4.5 (3.3-5.1) mmol/L Chloride 105 (96-108) mmol/L Carbon Dioxide 28 (22-29) mmol/L Anion Gap 10 L (12-20) BUN 9 (9-16) mg/dL Creatinine 0.78 (0.5-1.4) mg/dL Estim Creat Clear Calc 144.8 Estimated GFR > 60 Random Glucose 111 (60-115) mg/dL Calcium 9.2 (8.4-10.2) mg/dL Magnesium 2.1 (1.6-2.6) mg/dL Total Bilirubin 0.4 (0.0-1.0) mg/dL Direct Bilirubin 0.2 (0.0-0.5) mg/dL AST 16 (5-31) U/L ALT 13 (0-31) U/L Alkaline Phosphatase 118 H (39-117) U/L Total Protein 6.9 (6.5-8.0) g/dL Albumin 3.9 (3.5-5.0) g/dL Urine Color Urine Appearance Urine pH (5.0-8.0) Ur Specific [place] (1.005-1.025) Urine Protein (NEG-TRACE) MG/DL Urine Glucose (UA) (NEG) MG/DL Urine Ketones (NEG) MG/DL Urine Blood (NEG) Urine Nitrite (NEG) Ur Leukocyte Esterase (NEG) Urine RBC (0) /HPF Urine WBC (0-4) /HPF Ur Squamous Epith Cells /LPF Urine Bacteria /LPF Urine Test (NEGATIVE) Discharge Plan Discharge Clinical Impression: Abdominal pain Patient Disposition: Home, Self-Care Additional Instructions: Your urine test shows improving infection - continue your antibiotics and drink plenty of water. Your CT scan showed an enlarged uterus, otherwise no abnormalities. 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 Prescriptions: New naproxen 500 mg tablet 500 mg PO BID PRN (Reason: pain) Qty: 14 0RF No Action cefpodoxime 200 mg tablet 200 mg PO BID Qty: 14 0RF Rx Instructions: must administer with a meal/food tramadol 50 mg tablet 50 mg PO Q6H PRN (Reason: pain) Qty: 20 0RF clonazepam 1 mg tablet 1 mg PO BEDTIME 0RF Rx Instructions: administer 30 minutes before bedtime trazodone 100 mg tablet 100 mg PO DAILY 0RF fluoxetine 20 mg capsule 40 mg PO DAILY 0RF PNV cmb#95-ferrous fumarate-FA [] 28 mg iron- 800 mcg tablet 1 tab PO DAILY Qty: 30 11RF Referrals: Jeffrey Cabral MD [Physician] - Stand Alone Forms: Work/School Release Interventions: ED Discharge Assessment Last Done: 11/11/21 15:07 Discharge Date/Time: 11/11/21 15:07
[2021-11-11 08:55] VITALS: BP 134/85; PULSE 88; RESP 20; TEMP 36.8; O2SAT 98; BMI 49.8
[2021-11-11 09:08] VITALS: BP 127/63; PULSE 87; RESP 16; TEMP 36.7; O2SAT 99
[2021-11-11 09:15] LABS: MANUAL DIFF FLAG NO
[2021-11-11 09:19] LABS: Appearance Urine CLEAR; Color Urine YELLOW; Glucose Urine UA NEG (NEG); Leukocyte Esterase Urine TRACE (NEG); Nitrite Urine NEG (NEG); UPreg QC Valid YES; Urine Blood NEG (NEG); Urine Ketones NEG (NEG); Urine Pregnancy NEGATIVE (NEGATIVE); Urine Protein NEG (NEG-TRACE)
[2021-11-11 09:22] LABS: Basophils Percent Auto 0.4 % (0-2); Eosinophils Absolute Auto 0.1 X10*3/uL (0.0-0.4); Eosinophils Percent Auto 1.2 % (0-4); Hematocrit 37.9 % (37.0-47.0); Hemoglobin 12.3 g/dl (12.0-16.0); Imm Gran Abs Auto 0.02 X10*3/uL (0.00-0.03); Imm Gran Pct Auto 0.3 % (0.0-0.4); Lymphocytes Absolute Auto 1.5 X10*3/uL (1.2-4.9); Lymphocytes Percent Auto 19.5 % (20-40); Mean Corpuscular HGB Conc 32.5 g/dl (31.0-35.0); Mean Corpuscular Hemoglobin 29.4 pg (27.0-33.0); Mean Corpuscular Volume 90.5 fL (80.0-98.0); Mean Platelet Volume 9.3 fL (9.4-12.3); Monocytes Absolute Auto 0.5 X10*3/uL (0.1-1.2); Monocytes Percent Auto 6.9 % (2-11); Neutrophils Absolute Auto 5.5 x10*3/uL (2.0-8.3); Neutrophils Percent Auto 71.7 % (45-73); Platelet Count 352 X10*3/uL (160-400); Red Blood Count 4.19 X10*6/uL (4.20-5.50); Red Cell Distribution Width 12.2 % (11.0-16.0); White Blood Count 7.7 X10*3/uL (4.8-10.8)
[2021-11-11 09:29] LABS: Squamous Epithelial Cell Urine 2+ /LPF
[2021-11-11 09:30] LABS: RBC Urine 0 /HPF (0)
[2021-11-11 09:36] LABS: Alanine Aminotransferase 13 U/L (0-31); Albumin Level 3.9 g/dL (3.5-5.0); Alkaline Phosphatase 118 U/L (39-117); Anion Gap 10 (12-20); Aspartate Amino Transferase 16 U/L (5-31); Bilirubin Direct 0.2 mg/dL (0.0-0.5); Bilirubin Total 0.4 mg/dL (0.0-1.0); Blood Urea Nitrogen 9 mg/dL (9-16); Calcium 9.2 mg/dL (8.4-10.2); Carbon Dioxide 28 mmol/L (22-29); Chloride 105 mmol/L (96-108); Creatinine Clr Calc Pharmacy 144.8; Estimated Glomerular Filt Rate > 60; Glucose Random 111 mg/dL (60-115); Magnesium 2.1 mg/dL (1.6-2.6); Potassium 4.5 mmol/L (3.3-5.1); Sodium 138 mmol/L (135-145); Total Protein 6.9 g/dL (6.5-8.0)
[2021-11-11] MEDS: Morphine Sulfate 4 MG/ML CARTRIDGE IVPUSH (10:06)
[2021-11-11] MEDS: ondansetron HCL 4 MG/2 ML VIAL IVPUSH (10:06)
[2021-11-11 12:00] VITALS: BP 125/63; PULSE 66; RESP 16; O2SAT 100
[2021-11-11] MEDS: Ketorolac Tromethamine 30 MG/ML VIAL IVPUSH (12:43)
[2021-11-11] MEDS: iohexoL 350 MG/ML 100 ML INFUS..BTL IV (13:14)
== END 2021-11-11 15:07 | disposition home or self-care (01) ==
PROVIDERS: Physician Assistant; Emergency Provider Emergency Medicine; PCP Internal Medicine
DX: R10.30 Lower abdominal pain, unspecified (principal); N39.0 Urinary tract infection, site not specified; J45.909 Unspecified asthma, uncomplicated
CPT/HCPCS: 36415; 74177; 80048; 80076; 81001; 81003; 81025; 83735; 85025; 96374; 96375; 99284; 99285; J1885; J2270; J2405; Q9967

== ENCOUNTER 2022-04-19 19:20 | Emergency (ER) | payer MEDICAID, SELFPAY ==
[2022-04-19 20:45] VITALS: BP 141/89; PULSE 80; RESP 18; TEMP 36.7; O2SAT 100; BMI 48.2
[2022-04-19 21:06] LABS: Appearance Urine Cloudy; Color Urine Yellow; Glucose Urine UA Negative (Negative); Leukocyte Esterase Urine Moderate (2+) (Negative); Nitrite Urine Negative (Negative); UMIC TRIGGER UACC YES; Urine Blood Moderate (2+) (Negative); Urine Ketones Trace mg/dL (Negative); Urine Protein 30 (1+) mg/dL (Neg-Trace)
[2022-04-19 21:07] LABS: UPreg QC Valid YES; Urine Pregnancy NEGATIVE (NEGATIVE)
[2022-04-19 21:09] LABS: Bacteria Urine 1+ (None Seen); Hyaline Casts Urine 0-2 /LPF (0-2); RBC Urine >20 /HPF (0-2); Squamous Epithelial Cell Urine 0-2 /HPF (0-2); UACC Culture Trigger YES; WBC Urine >50 /HPF (0-5)
--- OUTSIDE RECORDS SUMMARY | 2022-04-19 21:15 | XMS_ITS | Continuity of Care Document ---
:1995 Author Organization [facility] ic Address [address] [place] [id number]- Care Team Providers Name Role Phone Orestes FUCHS, Anna Marie Negrete Primary Care Physician [place] [facility] [place] 09/20/[address] [address] Allergies, Adverse Reactions, Alerts No Known Medication Allergies Medications acetaminophen 325 mg oral capsule 2 capsule = 650 mg, By Mouth, Every 4 hours, PRN Pain , Mild, # 20 capsule, 0 Refills, Maintenance, 02/27/20 18:05:00 EDT, Capsule, [id number] Start Date: 02/27/20 Status: Orderedhydrochlorothiazide 25 mg oral tablet 1 tablet = 25 mg, By Mouth, Daily, # 30 tablet, 5 Refills, Maintenance, Tablet Start Date: 01/13/10 Status: Orderedibuprofen 200 mg oral capsule 2 capsule = 400 mg, By Mouth, Every 6 hours, PRN for pain, # 120 capsule, 0 Refills, Maintenance, 02/27/20 18:05:00 EDT, Capsule, [id number] Start Date: 02/27/20 Status: Orderedisoniazid 300 mg oral tablet 1 tablet = 300 mg, By Mouth, Daily, # 30 tablet, 0 Refills, Maintenance Start Date: 08/25/10 Status: Ordered Problem List Condition Effective Dates Status Health Status Informant Hypertension(Confirmed) Active
--- OUTSIDE RECORDS SUMMARY | 2022-04-19 21:15 | XMS_ITS | Continuity of Care Document ---
:1995 Author Organization [facility] Address [address] [place] [id number]- Care Team Providers Name Role Phone Orestes FUCHS, Anna Marie Negrete Primary Care Physician [place] [facility] [place] 11/05/20 - 12/05/[address] [address]- Allergies, Adverse Reactions, Alerts No Known Medication Allergies Medications Clonazepam By Mouth, 3 times a day, 0 Refills, Maintenance, 11/07/20 14:32:00 EDT, Partial fill upon patient request if the prescription is for a schedule II opioid drug. Start Date: 11/07/20 Status: OrderedPrenatal Multivitamins with FA 0.8 mg oral tablet 1 tablet, By Mouth, Daily, # 60 tablet, 3 Refills, Maintenance, 11/07/20 13:45:00 EDT, Tablet, [id number], Partial fill upon patient request if the prescription is for a schedule II opioid drug., 1 tablet By Mouth Daily, 165.6, cm, 11/07/20 12... Start Date: 11/07/20 Status: Orderedtranexamic acid 650 mg oral tablet 2 tablet = 1,300 mg, By Mouth, 3 times a day, for a maximum of 5 days during monthly menstruation, #30 tablet, 0 Refills, Maintenance, 11/07/20 13:46:00 EDT, Tablet, [id number], Partial fill upon patient request if the prescription is for a s... Start Date: 11/07/20 Stop Date: 11/12/20 Status: OrderedTrazodone By Mouth, 2 times a day, 0 Refills, Maintenance, 11/07/20 14:32:00 EDT, Partial fill upon patient request if the prescription is for a schedule II opioid drug. Start Date: 11/07/20 Status: Ordered Problem List Condition Effective Dates Status Health Status Informant Hypertension(Confirmed) Active Uterine fibroid(Confirmed) Active
--- OUTSIDE RECORDS SUMMARY | 2022-04-19 21:15 | XMS_ITS | Continuity of Care Document ---
:1995 Author Organization [facility] Address [address] [place] [address]- Care Team Providers Name Role Phone Anna Marie Carlisle MD, V Primary Care Physician Encounter [facility] [place] Date(s): 02/26/20 - 02/27/[address] [address] [facility] Discharge Disposition: A-D/C Home Attending Physician: Cintia Maya MD Admitting Physician: Cintia Maya MD Referring Physician: Not on Staff, Referring MD Allergies, Adverse Reactions, Alerts No Known Medication [...] Dates Status Health Status Informant Hypertension(Confirmed) Active Vital Signs Most recent to oldest 1 2 3 [Reference Range]: Oxygen Saturation [94-100 %] 100 % 100 % 100 % (02/27/20 6:39 PM) (02/27/20 5:05 PM) (02/27/20 2:3 3 PM) Pulse Rate [55-90 bpm] 84 bpm 63 bpm 70 bpm (02/27/20 6:39 PM) (02/27/20 5:05 PM) (02/27/20 2:3 3 PM) Blood Pressure [90-138/55-84 mm 115/67 mm Hg 114/56 mm Hg 112/66 mm Hg Hg] (02/27/20 6:39 PM) (02/27/20 5:05 PM) (02/27/20 2:3 3 PM) Respiratory Rate [16-30 br/min] 16 br/min 18 br/min 18 br/min (02/27/20 6:39 PM) (02/27/20 5:05 PM) (02/27/20 2:3 3 PM) Temperature [96.8-100.4 DegF] 98.1 DegF 97.9 DegF 98 .0 DegF (02/27/20 6:39 PM) (02/27/20 5:05 PM) (02/27/20 2:3 3 PM) Mode of Delivery (Oxygen) Room air Room air Room a ir (02/27/20 6:39 PM) (02/27/20 5:05 PM) (02/27/20 2:3 3 PM) Blood pressure sites Arm, right Arm, right Arm, left (02/27/20 6:39 PM) (02/27/20 5:05 PM) (02/27/20 2:3 3 PM) Temperature Route Oral Oral Oral (02/27/20 6:39 PM) (02/27/20 5:05 PM) (02/27/20 2:3 3 PM)
--- OUTSIDE RECORDS SUMMARY | 2022-04-19 21:15 | XMS_ITS | Continuity of Care Document ---
:1995 Author Organization [facility] Address Unavailable , Care Team Providers Name Role Phone Anna Marie Carlisle MD, V Primary Care Physician [place] [facility] [place] 04[place]/21 [facility] Attending Physician: Yvette Dickson Admitting Physician: Yvette Dickson Referring Physician: AdmtrYvette Allergies, Adverse Reactions, Alerts No Known Medication [...]
--- OUTSIDE RECORDS SUMMARY | 2022-04-19 21:15 | XMS_ITS | Continuity of Care Document ---
:1995 Author Organization [facility] Address [address] [place] [id number]- Care Team Providers Name Role Phone Orestes FUCHS, Anna Marie Negrete Primary Care Physician [place] [facility] [place] Date(s): 11/07/20 - 12/07/[address] [address]- Attending Physician: Yvette Dickson Admitting Physician: Yvette [...]
--- OUTSIDE RECORDS SUMMARY | 2022-04-19 21:15 | XMS_ITS | Continuity of Care Document ---
:1995 Author Organization [facility] Address Unavailable , Care Team Providers Name Role Phone Orestes FUCHS, Anna Marie Negrete Primary Care Physician [place] [facility] [id number] Date(s): 01/27/21 - 04/05/21 [facility] Attending Physician: Dana Warren MD Referring Physician: Alonso FUCHS, Zahraa Moreno Allergies, Adverse Reactions, Alerts No Known Medication [...]
--- OUTSIDE RECORDS SUMMARY | 2022-04-19 21:15 | XMS_ITS | Continuity of Care Document ---
:1995 Author Organization [facility] Address [address] [place] [id number]- Care Team Providers Name Role Phone Orestes FUCHS, Anna Marie Negrete Primary Care Physician [id number] Date(s): 08/22/20 - 12/11/[address] [address]- Attending Physician: Not on Staff, Attending MD Referring Physician: Ethan Clark MD, Sarai Cueva Allergies, Adverse Reactions, Alerts No Known Medication [...]
--- NOTE | 2022-04-19 21:48 | ED.FEMALEGU ---
HPI - Female Genitourinary General Chief complaint: Urogenital-Female Stated complaint: 2 days, blood in urine Time Seen by Provider: 04/19/22 20:54 Source: patient Mode of arrival: ambulatory Limitations: no limitations History of Present Illness HPI Narrative: Patient presents emergency department for evaluation of some urinary symptoms. Onset 2 days ago. Pain with urination, Urinary frequency, and today noticed a small amount of blood after wiping. denies fevers, chills, nausea, vomiting, abdominal pain, flank pain, back pain, urinary retention, pelvic pain, abnormal vaginal discharge. Related Data Home Medications Medication Instructions Recorded Confirmed clonazepam 1 mg tablet 1 mg PO BEDTIME 06/09/20 04/07/21 trazodone 100 mg tablet 100 mg PO DAILY 11/26/20 04/07/21 fluoxetine 20 mg capsule 40 mg PO DAILY 04/07/21 04/07/21 Previous Rx's Medication Instructions Recorded vit no.95-ferrous 1 tab PO DAILY #30 tabs 04/07/21 fumarate 28 mg-folic acid 800 mcg tablet () cefpodoxime 200 mg tablet 200 mg PO BID #14 tabs 11/09/21 tramadol 50 mg tablet 50 mg PO Q6H PRN pain #20 tabs 11/09/21 naproxen 500 mg tablet 500 mg PO BID PRN pain #14 tabs 11/11/21 cefuroxime axetil 250 mg tablet 250 mg PO Q12H #14 tabs 04/19/22 Allergies Allergy/AdvReac Type Severity Reaction Status Date / Time No Known Allergies Allergy Verified 04/19/22 20:45 Review of Systems Review of Systems: Constitutional: No weight loss, fever, chills, weakness or fatigue. Skin: No rash or itching. Cardiovascular: No chest pain, chest pressure or chest discomfort. No palpitations or pedal edema. Respiratory: No shortness of breath, cough or sputum production. Gastrointestinal: No anorexia, nausea, vomiting or diarrhea. No abdominal pain or blood in stool. Genitourinary: Positive burning micturition. positive urinary frequency Musculoskeletal: No muscle pain, back pain, joint pain or stiffness. Psychiatric: No depression or anxiety. Yes all other systems are reviewed and are negative PMFSH Past Medical History Attestation statement: The following information was validated with the patient. Source: old records reviewed Medical History Asthma Insomnia Obesity Surgical History S/P cholecystectomy Social History Social History Alcohol intake: never Advance Directives: No Advance Directives Information Provided: No Sexual orientation: Straight/Heterosexual Gender identity: Female Physical Exam Vital Signs: Vital Signs: Last Vital Signs Temp 98.1 F 04/19/22 20:45 Pulse 80 04/19/22 20:45 Resp 18 04/19/22 20:45 BP 141/89 H 04/19/22 20:45 Pulse Ox 100 04/19/22 20:45 O2 Del Method 04/19/22 20:45 BMI result Body Mass Index 48.2 Appearance: Alert.?Oriented to person, place and time. No acute distress.?Normal affect. Eyes: Pupils equal, round and reactive to light.? ENT: Pharynx normal.?? Neck: Normal inspection.? Neck supple.?? CVS: Heart sounds normal. Normal heart rate and rhythm.? Pulses normal.?? Respiratory: No respiratory distress.? Lung sounds clear to auscultation bilaterally?? Abdomen: Soft and non-tender. Normoactive bowel sounds. no CVA tenderness Skin: Skin warm and dry.? Normal skin color.? .?? Extremities: No lower extremity edema.? Neuro: Moves all extremities spontaneously. Sensation intact bilaterally. No focal neuro deficits. Ambulates with normal steady gait. Course Course Course Narrative: patient is a 27-year-old female who presents emergency department for evaluation of genitourinary symptoms. Physical exam is overall reassuring, vital signs are stable, she is afebrile without tachycardia. Urinalysis with hematuria moderate leukocyte esterase and wbc's, consistent with urinary tract infection. Urine test is negative. Abdominal exam is benign. No flank pain. Not consistent with pyelonephritis at this time. Discussed plan of care for discharge home, hydration, antibiotics, worsens and symptoms to return back to emergency department for. All questions were answered. Patient was discharged home in stable condition. [facility] - Female Genitourinary Medical Records Attestation: I reviewed the patient's medical records. Lab Data Attestation: I reviewed the patient's lab results. Labs: Lab Results 04/19/22 04/19/22 Range/Units 20:59 20:59 Urine Color Yellow Urine Appearance Cloudy Urine pH 7.0 (5.0-9.0) Ur Specific [place] 1.020 (1.005-1.025) Urine Protein 30 (1+) H (Neg-Trace) mg/dL Urine Glucose (UA) Negative (Negative) mg/dL Urine Ketones Trace (Negative) mg/dL Urine Blood Moderate (2+) H (Negative) Urine Nitrite Negative (Negative) Ur Leukocyte Esterase Moderate (2+) H (Negative) Urine RBC >20 H (0-2) /HPF Urine WBC >50 H (0-5) /HPF Ur Squamous Epith Cells 0-2 (0-2) /HPF Urine Bacteria 1+ (None Seen) Hyaline Casts 0-2 (0-2) /LPF Urine Test NEGATIVE (NEGATIVE) Discharge Plan Discharge Clinical Impression: Urinary tract infection Patient Disposition: Home, Self-Care Instructions: Urinary Tract Infection in Women (ED) Additional Instructions: You have a urinary tract infection. You have been given an antibiotic which was sent to your pharmacy please complete this entire course. Be sure to stay well hydrated. Return to the emergency department with any new or worsening symptoms or concerns. Follow-up with your primary care provider as needed. Prescriptions: New cefuroxime axetil 250 mg tablet 250 mg PO Q12H Qty: 14 0RF No Action cefpodoxime 200 mg tablet 200 mg PO BID Qty: 14 0RF Rx Instructions: must administer with a meal/food tramadol 50 mg tablet 50 mg PO Q6H PRN (Reason: pain) Qty: 20 0RF naproxen 500 mg tablet 500 mg PO BID PRN (Reason: pain) Qty: 14 0RF clonazepam 1 mg tablet 1 mg PO BEDTIME Rx Instructions: administer 30 minutes before bedtime trazodone 100 mg tablet 100 mg PO DAILY fluoxetine 20 mg capsule 40 mg PO DAILY PNV cmb#95-ferrous fumarate-FA [] 28 mg iron- 800 mcg tablet 1 tab PO DAILY Qty: 30 11RF Stand Alone Forms: Work/School Release
== END 2022-04-19 22:31 | disposition home or self-care (01) ==
PROVIDERS: Nurse Practitioner Family; Emergency Provider Emergency Medicine Emergency Medical Services; PCP Internal Medicine
DX: N39.0 Urinary tract infection, site not specified (principal); E66.9 Obesity, unspecified; Z68.42 Body mass index [BMI] 45.0-49.9, adult
CPT/HCPCS: 81001; 81025; 87086; 99282; 99283

== ENCOUNTER 2022-07-11 22:53 | Emergency (ER) | payer MEDICAID, SELFPAY ==
[2022-07-11 22:58] VITALS: BP 114/60; PULSE 100; RESP 22; TEMP 36.9; O2SAT 99; BMI 49.4
[2022-07-12 00:20] LABS: COVID-19 Test Negative (Negative); IDNOW Serial# BCCEAD1C
[2022-07-12 00:23] LABS: IDNOW Serial# 16C4AD1C; Influenza A Positive (Negative); Influenza B2 Negative (Negative)
--- NOTE | 2022-07-12 00:23 | PC.NURSE ---
Pt c/o asthma and body aches for the last four days. Pt is alert and oriented. Boyfriend at bedside. Pt states she is 13 wks .
--- NOTE | 2022-07-12 00:25 | ED.ASTHMA ---
HPI - Asthma General Chief Complaint: Asthma Stated Complaint: asthma Time Seen by Provider: 07/12/22 00:25 Source: patient Mode of arrival: ambulatory Limitations: no limitations History of Present Illness HPI Narrative: Patient's stay of asthma been sick for last 4-5 days with nasal congestion runny nose dry cough no fever patient is 13 weeks Related Data Home Medications Medication Instructions Recorded Confirmed clonazepam 1 mg tablet 1 mg PO BEDTIME 06/09/20 04/07/21 trazodone 100 mg tablet 100 mg PO DAILY 11/26/20 04/07/21 fluoxetine 20 mg capsule 40 mg PO DAILY 04/07/21 04/07/21 Previous Rx's Medication Instructions Recorded vit no.95-ferrous 1 tab PO DAILY #30 tabs 04/07/21 fumarate 28 mg-folic acid 800 mcg tablet () cefpodoxime 200 mg tablet 200 mg PO BID #14 tabs 11/09/21 tramadol 50 mg tablet 50 mg PO Q6H PRN pain #20 tabs 11/09/21 naproxen 500 mg tablet 500 mg PO BID PRN pain #14 tabs 11/11/21 cefuroxime axetil 250 mg tablet 250 mg PO Q12H #14 tabs 04/19/22 albuterol sulfate 2.5 mg/3 mL 2.5 mg (3 mL) inhalation Q4-6H PRN 07/12/22 (0.083 %) solution for nebulization shortness of breath or wheezing #90 mL albuterol sulfate 90 mcg/actuation 2 puff inhalation Q4-6H PRN 07/12/22 aerosol inhaler (ProAir HFA) shortness of breath or wheezing #8.5 grams prednisone 20 mg tablet 40 mg PO DAILY #10 tabs 07/12/22 Allergies Allergy/AdvReac Type Severity Reaction Status Date / Time No Known Allergies Allergy Verified 07/11/22 23:03 Review of Systems Review of Systems: Yes all other systems are reviewed and are negative PMFSH Past Medical History Medical History Asthma Insomnia Obesity Surgical History S/P cholecystectomy Social History Social History Alcohol intake: never Smoked in Last 30 Days: No Use of substances other than those prescribed or required for medical reasons: No Advance Directives: No Advance Directives Information Provided: Yes Patient : Yes Sexual orientation: Straight/Heterosexual Gender identity: Female Physical Exam Vital Signs: Vital Signs: Last Vital Signs Temp 98.5 F 07/12/22 00:29 Pulse 93 07/12/22 00:29 Resp 20 07/12/22 00:29 BP 125/64 07/12/22 00:29 Pulse Ox 97 07/12/22 00:29 O2 Del Method 07/12/22 00:29 BMI result Body Mass Index 49.4 Appearance: Alert. Oriented X3. No acute distress. Eyes: No pallor ENT: Pharynx normal. Oral Mucosa moist clear rhinorrhea Neck: Normal inspection. Neck supple. CVS: Normal heart rate and rhythm. Pulses normal. Respiratory: No respiratory distress. Equal air entry bilateral, prolonged expiration frequently cough Abdomen: Soft and nontender. Bowel sounds are present, no mass palpable, no CVA tenderness Skin: Skin warm and dry. Normal skin color. Normal skin turgor. Extremities: No lower extremity edema. No calf tenderness Neuro: Oriented X 3. Medications Administered Discontinued Medications Generic Name Dose Route Start Last Admin Trade Name Freq PRN Reason Stop Dose Admin Albuterol Sulfate 2 puff 07/12/22 00:31 07/12/22 00:37 Albuterol Sulfate 90 Mcg 8 Gm Inhaler INHALE 07/12/22 00:32 2 puff ONCE ONE Administration Guaifenesin/Codeine Phosphate 10 ml 07/12/22 00:31 07/12/22 00:40 Guaifen/Codeine Sf 200/20/10ml 10 Ml Liquid PO 07/12/22 00:32 Not Given ONCE ONE Prednisone 60 mg 07/12/22 00:31 07/12/22 00:37 Prednisone 20 Mg Tablet PO 07/12/22 00:32 60 mg ONCE ONE Administration Medical Decision Making Lab Data MDM Lab Attestation statement: I reviewed the patient's lab results. Labs: Lab Results 07/11/22 07/11/22 Range/Units 23:49 23:49 COVID-19 (QING) Negative (Negative) COVID-19 Clin Com See Note Influenza Type A (ADRIAN) Positive A (Negative) Influenza Type B (ADRIAN) Negative (Negative) Influenza A & B Note See Note Discharge Plan Discharge Clinical Impression: Asthma, Influenza A (H1N1) Patient Disposition: Home, Self-Care Instructions: Asthma (ED), Influenza (ED) Additional Instructions: Drink plenty of fluids Use inhaler and prednisone as prescribed Prescriptions: New prednisone 20 mg tablet 40 mg PO DAILY Qty: 10 0RF albuterol sulfate [ProAir HFA] 90 mcg/actuation HFA aerosol inhaler 2 puff inhalation Q4-6H PRN (Reason: shortness of breath or wheezing) Qty: 8.5 0RF albuterol sulfate 2.5 mg /3 mL (0.083 %) solution for nebulization 2.5 mg inhalation Q4-6H PRN (Reason: shortness of breath or wheezing) Qty: 90 0RF No Action cefpodoxime 200 mg tablet 200 mg PO BID Qty: 14 0RF Rx Instructions: must administer with a meal/food tramadol 50 mg tablet 50 mg PO Q6H PRN (Reason: pain) Qty: 20 0RF cefuroxime axetil 250 mg tablet 250 mg PO Q12H Qty: 14 0RF naproxen 500 mg tablet 500 mg PO BID PRN (Reason: pain) Qty: 14 0RF clonazepam 1 mg tablet 1 mg PO BEDTIME Rx Instructions: administer 30 minutes before bedtime trazodone 100 mg tablet 100 mg PO DAILY fluoxetine 20 mg capsule 40 mg PO DAILY PNV cmb#95-ferrous fumarate-FA [] 28 mg iron- 800 mcg tablet 1 tab PO DAILY Qty: 30 11RF Print Language: Latvian
[2022-07-12 00:29] VITALS: BP 125/64; PULSE 93; RESP 20; TEMP 36.9; O2SAT 97
== END 2022-07-12 01:10 | disposition home or self-care (01) ==
PROVIDERS: Emergency Provider Internal Medicine; PCP Internal Medicine
DX: O98.511 Other viral diseases complicating pregnancy, first trimester (principal); J11.1 Influenza due to unidentified influenza virus with other respiratory manifestations; J45.909 Unspecified asthma, uncomplicated; Z3A.13 13 weeks gestation of pregnancy; Z20.822 Contact with and (suspected) exposure to COVID-19
CPT/HCPCS: 87502; 87635; 99284

== ENCOUNTER 2023-03-16 12:18 | Outpatient (REF) | payer MEDICAID, SELFPAY ==
--- NOTE | ~2023-03-16 | XR_ITS ---
EXAMINATION: XR KNEE, LEFT CLINICAL INFORMATION: 2 day history of left knee pain COMPARISON: None available. TECHNIQUE: Three views of the left knee. FINDINGS: No fracture or joint effusion. Alignment is anatomic. Joint spaces are maintained. No abnormal soft tissue calcification. XR/XR knee LT 3V IMPRESSION: Normal left knee.
== END 2023-03-16 12:19 | disposition home or self-care (01) ==
LOC: HO.HHCX 12:18
PROVIDERS: Visit Provider Internal Medicine
DX: M25.562 Pain in left knee (principal)
CPT/HCPCS: 73562

== ENCOUNTER 2024-03-08 14:16 | Outpatient (REF) | payer MEDICAID, SELFPAY ==
[2024-03-08 16:33] LABS: Alanine Aminotransferase 19 U/L (0-31); Albumin Level 4.1 g/dL (3.5-5.0); Alkaline Phosphatase 117 U/L (39-117); Anion Gap 11 (12-20); Aspartate Amino Transferase 24 U/L (5-31); Bilirubin Total 0.3 mg/dL (0.0-1.0); Blood Urea Nitrogen 15 mg/dL (9-16); Calcium 9.8 mg/dL (8.4-10.2); Carbon Dioxide 27 mmol/L (22-29); Chloride 104 mmol/L (96-108); Cholesterol 165 mg/dL (<200); Estimated Glomerular Filt Rate > 60; Glucose Random 90 mg/dL (60-115); HDL Cholesterol 46 mg/dL (>40); LDL Cholesterol Calculated 89 mg/dL (<100); Potassium 4.2 mmol/L (3.3-5.1); Sodium 138 mmol/L (135-145); Total Protein 7.2 g/dL (6.5-8.0); Triglycerides 154 mg/dL (<150)
[2024-03-08 16:48] LABS: TSH reflex Free T4 0.97 uIU/mL (0.32-4.0)
[2024-03-08 21:19] LABS: Reflex LDLD? No
== END 2024-03-08 14:17 | disposition home or self-care (01) ==
LOC: HO.HHCL 14:16
PROVIDERS: Visit Provider Internal Medicine
DX: Z00.00 Encounter for general adult medical examination without abnormal findings (principal); R00.2 Palpitations
CPT/HCPCS: 36415; 80053; 80061; 84443

== ENCOUNTER 2024-03-28 13:47 | Outpatient (REF) | payer MEDICAID, SELFPAY ==
[2024-03-28 16:01] LABS: MANUAL DIFF FLAG NO
[2024-03-28 16:05] LABS: Basophils Percent Auto 0.6 % (0-2); Eosinophils Absolute Auto 0.1 X10*3/uL (0.0-0.4); Eosinophils Percent Auto 1.7 % (0-4); Hematocrit 41.2 % (37.0-47.0); Hemoglobin 13.5 g/dl (12.0-16.0); Imm Gran Abs Auto 0.02 X10*3/uL (0.00-0.03); Imm Gran Pct Auto 0.4 % (0.0-0.4); Lymphocytes Absolute Auto 1.5 X10*3/uL (1.2-4.9); Lymphocytes Percent Auto 27.2 % (20-40); Mean Corpuscular HGB Conc 32.8 g/dl (31.0-35.0); Mean Corpuscular Hemoglobin 29.5 pg (27.0-33.0); Mean Platelet Volume 9.7 fL (9.4-12.3); Monocytes Absolute Auto 0.4 X10*3/uL (0.1-1.2); Monocytes Percent Auto 6.9 % (2-11); Neutrophils Absolute Auto 3.4 x10*3/uL (2.0-8.3); Neutrophils Percent Auto 63.2 % (45-73); Platelet Count 348 X10*3/uL (160-400); Red Blood Count 4.58 X10*6/uL (4.20-5.50); Red Cell Distribution Width 12.5 % (11.0-16.0); White Blood Count 5.3 X10*3/uL (4.8-10.8)
[2024-03-28 16:50] LABS: Estimated Average Glucose 108 mg/dL; Hemoglobin A1c % 5.4 % (<6.0)
== END 2024-03-28 13:48 | disposition home or self-care (01) ==
LOC: HO.HHCL 13:47
PROVIDERS: Visit Provider Internal Medicine
DX: M25.562 Pain in left knee (principal); Z13.89 Encounter for screening for other disorder
CPT/HCPCS: 36415; 83036; 85025; 99202

== ENCOUNTER 2024-03-28 14:51 | Outpatient (AMB) | payer MEDICAID, SELFPAY ==
--- NOTE | 2024-03-28 14:55 | A.OFFVIS_ITS ---
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 The patient describes her pain as sharp and severe in nature. Most of the pain is along the medial aspect of her knee. The patient states that she twisted her knee 1 year ago when walking down the stairs. She had acute onset of pain. She states that her left knee will give out several times per day. She has tried Tylenol and anti-inflammatory medicines which gave her minimal relief. She has performed a home exercise program which seemed to aggravate her pain. The patient has failed the last 6 weeks of conservative treatment. 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 [employer] Name: Sarai [id number] Allergies No Known Allergies Allergy (Verified 03/28/24 15:09) PFSH Medical History Asthma Insomnia Obesity Surgical History S/P cholecystectomy Social History Alcohol intake: never Sexual orientation: Straight/Heterosexual Gender identity: Female Female Reproductive History Menstrual Age of Menarche: 7 Physical Exam Vital Signs: BMI result Body Mass Index 45.2 Const Other: Well-nourished well-developed very friendly female awake alert and oriented x3 in no acute distress Extrem Other: Bilateral lower extremity examination shows good capillary refill, no skin lesions noted, normal sensation light touch Left knee examination shows a minimal effusion, minimal crepitus with range of motion, tenderness along her medial joint line, positive Jose J's test, no instability Results Reviewed Results Reviewed: Standing full weight-bearing x-rays of the patient's left knee show mild diffuse joint space narrowing, no acute bony abnormalities Assessment & Plan Assessment & Plan (1) Left knee pain: Code(s): M25.562 - Pain in left knee Category: Medical Plan Ms. Balta Rodriguez presents with progressively worsening left knee pain and mechanical symptoms most likely due to a tear of her medial meniscus. Thus, I will send the patient for an MRI of her left knee for further evaluation. I will see her back once the MRI is completed to discuss the findings and treatment options. Feel free to call me at any time should questions regarding her orthopedic management arise. Thank you very much for asking me to see this very friendly patient. I spent 21 minutes in reviewing the patient's records and imaging studies, seeing the patient and documenting in the medical record. Orders: Orders PT Evaluation and Treatment 03/28/24 M25.562 - Pain in left knee MR knee LT wo con Today M25.562 - Pain in left knee Coding Level of Care Code New Pt Level 3 (82306) Complex EM visit Add On G2211 Diagnoses Left knee pain M25.562
[2024-03-28 15:08] VITALS: BMI 45.2
== END 2024-03-28 15:26 | disposition home or self-care (01) ==
PROVIDERS: PCP Internal Medicine; Visit Provider Orthopaedic Surgery
DX: M25.562 Pain in left knee (principal)
CPT/HCPCS: 99203

== ENCOUNTER 2024-05-04 17:40 | Outpatient (REF) | payer MEDICAID, SELFPAY ==
--- NOTE | ~2024-05-04 | MR_ITS ---
EXAMINATION: MR KNEE WITHOUT CONTRAST, LEFT CLINICAL INFORMATION: Left knee pain. COMPARISON: Left knee radiographs dated 03/16/2023. TECHNIQUE: MRI of the knee without contrast was performed using routine sequences on a high-field scanner. FINDINGS: MENISCI: Medial Meniscus: Intact Lateral Meniscus: Intact LIGAMENTS: Cruciate: Intact Collateral: Intact EXTENSOR MECHANISM: Intact quadriceps and patellar tendons. Normal patellofemoral alignment. ARTICULAR CARTILAGE/BONE: Patellofemoral Compartment: Lateral patellar facet articular cartilage thinning with full thickness fissuring and subchondral cystic change as well as mild marrow edema superiorly. Tiny marginal osteophytes. Medial Compartment: Intact articular cartilage. Lateral Compartment: Intact articular cartilage. JOINT FLUID AND BURSAE: Trace joint effusion and trace Ibarra's cyst. MR/MR knee LT wo con IMPRESSION: 1. No acute meniscal or ligamentous injury. 2. Mild patellofemoral osteoarthritis. 3. Trace joint effusion and trace Ibarra's cyst. Electronically signed by: Larry Bailey MD 05/15/2024 06:58 AM EDT
== END 2024-05-04 17:41 | disposition home or self-care (01) ==
LOC: HO.MRI 17:40
PROVIDERS: PCP Internal Medicine; Visit Provider Orthopaedic Surgery
DX: M25.562 Pain in left knee (principal)
CPT/HCPCS: 73721

== ENCOUNTER 2024-06-13 15:05 | Outpatient (AMB) | payer MEDICAID, SELFPAY ==
--- NOTE | 2024-06-13 15:11 | MHC.OFFVIS ---
Intake Visit Reasons: OV-Left Knee MRI Review Intake Note: Lizzette is a 28 year old female who presents with complaints of intermittent left knee pain. She describes her pain as achy in nature. She did injure her left knee approximately 1 year ago when she twisted her knee while walking down stairs. She has tried Tylenol and anti-inflammatory medicines which gave her minimal relief. Most of the pain is along the anterior aspect of her knee. Allergies No Known Allergies Allergy (Verified 06/13/24 15:13) Medication List - Last Reconciled 06/13/24 by Torrey Whitaker MD albuterol sulfate 2.5 mg (3 mL) inhalation Q4-6H PRN albuterol sulfate 90 mcg/actuation (ProAir HFA) 2 puffs inhalation Q4-6H PRN cefpodoxime 200 mg PO BID cefuroxime axetil 250 mg PO Q12H clonazepam 1 mg PO BEDTIME fluoxetine 40 mg PO DAILY naproxen 500 mg PO BID PRN PNV cmb#95-ferrous fumarate-FA 28 mg iron- 800 mcg () 1 tab PO DAILY prednisone 40 mg (2 x 20 mg) PO DAILY tramadol 50 mg PO Q6H PRN trazodone 100 mg PO DAILY PFSH Medical History Asthma Insomnia Obesity Surgical History S/P cholecystectomy Social History Alcohol intake: never Sexual orientation: Straight/Heterosexual Gender identity: Female Female Reproductive History Menstrual Age of Menarche: 7 Physical Exam Const Other: Well-nourished well-developed very friendly female awake alert and oriented x3 in no acute distress Extrem Other: Bilateral lower extremity examination shows good capillary refill, no skin lesions noted, normal sensation light touch Left knee examination shows a minimal effusion, mild crepitus with range of motion, negative Jose J's test, no instability Results Reviewed Results Reviewed: MRI of the patient's left knee shows mild to moderate patellofemoral degenerative changes, no evidence of meniscus or ligamentous injury Assessment & Plan Assessment & Plan (1) Patellofemoral arthralgia of left knee: Code(s): M25.562 - Pain in left knee Category: Medical Plan Lizzette presents with intermittent left knee pain due to patellofemoral degenerative joint disease. I had a lengthy discussion with the patient regarding the treatment options. The patient wishes to hold off on an injection for now. I did give her a prescription to go to formal physical therapy. She will follow up with me on an as-needed basis should her symptoms not plateau at an unacceptable level over the next few months. Feel free to call me at any time should questions regarding her orthopedic management arise. I spent 22 minutes in reviewing the patient's records and imaging studies, seeing the patient and documenting in the medical record. Orders: Orders PT Evaluation and Treatment Today M25.562 - Pain in left knee Coding Level of Care Code Est Pt Level 3 (15975) Complex EM visit Add On G2211 Diagnoses Patellofemoral arthralgia of left knee M25.562
== END 2024-06-13 15:30 | disposition home or self-care (01) ==
PROVIDERS: PCP Internal Medicine; Visit Provider Orthopaedic Surgery
DX: M25.562 Pain in left knee (principal)
CPT/HCPCS: 99213

== ENCOUNTER → 2024-06-13 15:05 | Outpatient (BNVA) | payer MEDICAID, SELFPAY | PROVIDERS: PCP Internal Medicine; Visit Provider Orthopaedic Surgery | DX: M25.562 Pain in left knee (principal) | CPT/HCPCS: 99212 ==

== ENCOUNTER 2025-02-04 15:06 | Outpatient (REF) | payer MEDICAID, SELFPAY ==
--- OUTSIDE RECORDS SUMMARY | 2025-02-04 15:46 | XMS_ITS | Encounter Summary ---
Author Organization [facility] Address [address] [place] [address] 7 [place] [address] Care Team Providers Care Brick Shader Name Role Phone Sarai Plata MD Primary Care Provide r Encounter Details Date Type Department Care Team (Late st Contact Info) Description 04/18/2023 Abstract [facility] MEDICINE [address] [place] [address] [phone] Sarai Plata MD [address] [place] [address] [phone] Social History Tobacco Use Types Packs/Day Years Used Date Smoking Tobacco: Never Assessed Depression Answer Date Recorded Patient Health Questionnaire-9 Score 0 03/01/2023 Depression Answer Date Recorded Patient Health Questionnaire-2 Score 0 03/01/2023 Comments Unknown Sex and Gender Information Value Date Recorded Sex Assigned at Female 05/17/2022 10:20 AM EDT Legal Sex Female 10:20 AM EDT Gender Identity Female 05/17/2022 10:20 AM EDT Sexual Orientation Straight 05/17/2022 10 :20 AM EDT documented as of this encounter Plan of Treatment Upcoming Encounters Date Type Department Care Team (Late st Contact Info) Description 03/14/2025 1:15 PM EDT Office Visit [facility] MEDICINE [address] [place] [address] [phone] Sarai Plata MD [address] [place] [address] [phone] documented as of this encounter Procedures Procedure Name Priority Date/Time Associated Diagnosis Comments HM PAP/HPV Routine 04/07/2021 documented in this encounter Results * Hm Pap Smear (04/07/2021) Pap Negative for intraephithelial lesion or malignancy Negative for intraephithelial lesion or malignancy, Other us Historical Provider HEALTH MAINTENANCE Final Result documented in this encounter Visit Diagnoses Not on filedocumented in this encounter Additional Health Concerns Assessment Noted Time PHQ-9 Depression Total Score: 0 03/01/20 23 1:55 PM EDT documented as of this encounter Care Teams Brick Shader Relationship Specialty Start Date End Date Sarai Plata MD [address] [place] [id number] PCP - General Family Medicine 03/29/18 documented as of this encounter
--- OUTSIDE RECORDS SUMMARY | 2025-02-04 15:46 | XMS_ITS | Clinical Summary ---
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 30 each 2 Active Additional Information Patient not taking.Reported on 10/03/2024 albuterol 2.5 mg /3 mL (0.083 %) nebulizer solution INHALE 2.5 MG (3 ML) INHALED EVERY 4 TO 6 HOURS NEEDED FOR SHORTNESS OF BREATH OR WHEEZING 2 Active VENTOLIN HFA 90 mcg/actuation inhaler TAKE 2 PUFFS BY MOUTH EVERY 4 TO 6 HOURS NEEDED FOR WHEEZE FOR SHORTNESS OF BREATH 2 Active aspirin 81 MG EC tabletIndication s:Chronic hypertension affecting Take 1 tablet (81 mg total) by mouth daily. 90 tablet 2 3 Active Additional Information Patient not taking.Reported on 10/03/2024 FLUoxetine (PROZAC) 20 MG capsule Take 40 mg by mouth daily. 3 Active traZODone (DESYREL) 100 MG tablet Take 100 mg by mouth nightly at bedtime as needed. 2 Active NIGHTTIME SLEEP-AID, DOXYLAMN, 25 mg tablet TAKE 1 TABLET BY MOUTH EVERY DAY AT BEDTIME NEEDED FOR NAUSEA AND VOMITING 3 Active buPROPion (WELLBUTRIN SR) 100 MG SR 12 hr tablet Take 100 mg by mouth. 5 Active clonazePAM (KLONOPIN) 1 MG tablet TAKE 1 AND 1/2 TABLETS BY MOUTH EVERY NIGHT AT BEDTIME 5 Active triamcinolone acetonide 0.1 % cream Apply topically 2 (two) times a day. 30 g 5 Active Active Problems Problem Noted Date Diagnosed Date Fibroids 11/14/2024 Assessment & Plan (11/14/2024 3:43 PM EDT): The natural history of fibroids was reviewed with the patient. I explained that she has several fibroids on her ultrasound most of which are relatively small with a larger fibroid which is most likely pedunculated and located in the fundal region has increased in size compared to previous films by about 1 cm. I explained that large fibroids can sometimes cause discomfort and if her fibroid is pedunculated, that could account for some of the intermittent discomfort she is experiencing. However, it is possible that the fibroid may not be causing her pain at all. There are no other worrisome findings on the ultrasound. I explained that we could opt for expectant management with intervention if the pain becomes worse as she is only experiencing about once a week at the present time. Alternatively, I did offer her referral to the fibroid center at [facility] to consider laparoscopic removal. At the present time she prefers expectant management. She will contact us if her symptoms worsen. Maternal varicella, non-immune 06/02/2022 Overview (06/02/2022): Offer vaccine Asthma 05/28/2022 Overview (05/28/2022): Remote history Has not needed rescue inhaler in a long time Was hospitalized as a child multiple times Asthma has been well controlled since moving to History of ectopic 12/04/2020 Overview (03/20/2021): 11/27: 725; 11/29: 978; 12/01: 1557, 1552, 1545; 12/03: 2180 12/04: US uterus retroverted with multiple fibroids (2-7cm), thickened endometrium with possible gestational sac measuring 1.32 cm, ROV grossly normal, AMAURI with two cysts (simple 3cm with peripheral vascularity, 2cm with increased vascularity), no free fluid 12/05: 2966, AST/ALT , Cr 0.6 12/07: 3949 12/08: pt treated with MTX 120 mg (dose based on BSA), plan repeat labs 12/11 and 12/14 12/11: 4884; 12/12: 5051 12/14: Should be less than 4151 (15% decline): 4708--> repeat MTX dose given in [facility] ER 12/16: 3881 12/19: 2808 12/26: 442 01/02: 312, 01/09: 159, 01/23: 43, 01/30: 5.5 02/06: 12.1, 02/09: 11.9, 02/11: 11.5 02/25: 1.2, 03/04: 2.6 03/19: <1 No additional monitoring. Assessment & Plan (05/31/2022 12:41 PM EST): Denies pain, abnl bleeding. Has not had Hcg testing or early U/S - ordered today. Assessment & Plan (02/26/2021 11:04 AM EDT): Repeat CHG in one week Assessment & Plan (12/08/2020 1:32 PM EDT): Again reviewed HCG from yesterday with increase just below 35% and ultrasound findings today that are inconclusive but highly suggestive of abnormal IUP vs ectopic . Advised patient that I cannot with 100% certainty provide a diagnosis however, based on all of the clinical information to date I am very concerned for ectopic . We discussed the need to treat with MTX prior to HCG >5000 and the concern that emergency (or even planned) surgery confers an increased risk of complications due to BMI. We discussed the risk of hemorrhage, need for transfusion, and even . Calvin is not ready to make a decision, she and her mom would like to talk and will call the office this afternoon. I advised that if they continue to expectantly manage, will need to do repeat HCG tomorrow with very close follow up. Assessment & Plan (12/05/2020 3:25 PM EDT): Blood test results reviewed with Calvin via virtual visit with assistance from live is/it project manager. Discussed HCG increase is very slightly over the 35% cut off for HCG increase. Again advised that I cannot say with 100% certainty whether this is an intrauterine (viable vs nonviable) or an ectopic . Again offered patient presumptive treatment for ectopic which she declines. Reviewed risks of ruptured ectopic including bleeding, need for emergent surgery, and maternal . Plan repeat HCG on Tuesday - reviewed with patient that the lab at the hospital is closed for outpatient draws however, she can use the courtesy phone in the lobby to have a tech come draw her blood. Calvin expressed understanding. Plan ultrasound when HCG is >3500. Assessment & Plan (12/04/2020 2:07 PM EDT): HCG records obtained from [facility] during the course of the visit. Await remaining records. Discussed with patient and her mother that there has been an inconsistent appropriate rise in HCG level (threshold >=35% increase each 48 hours). In addition, ultrasound today is inconclusive as measurements do not correspond with LMP. Advised that I recommend treatment for likely ectopic with MTX however, can also trend HCG levels q48 hours and repeat US early next week. We discussed the risks of expectant management including ectopic rupture with intra-abdominal hemorrhage requiring emergency surgery, blood transfusion, and possibly maternal . Calvin is very tearful - this is a strongly desires and she has been trying for quite some time. Ultimately, she prefers to repeat HCG tomorrow and reassess. She understands the need to go to the nearest ER immediately should she develop pain or any other concerns. All of Calvin and her mother's questions were answered. Lab orders entered. Resolved Problems Problem Noted Date Diagnosed Date Resolved Date Chronic hypertension affecting 06/20/2022 11/14/2024 Overview (06/20/2022): CHTN in *presumed dx - BP elevated at intake and pt states she was told she had elevated BP in her early 20s in [place], briefly took meds but did not follow up Baseline HELLP labs, P/C ratio or 24 hour urine (done, normal) Begin baby ASA 12-14 wks No meds and nl BP: -Ultrasound for growth in third trimester (around 28- 32 wks) may repeat if clinically indicated On meds add q 4wks growth and wkly BPP at 32 wks If BP > 140/90 wkly BPP and growth q 4 wks Delivery: -No meds: 38-39+6 -Meds: 37-39+6 -Unstable: 36-37+6 Assessment & Plan (07/23/2022 9:51 PM EST): Her blood pressure is doing well on her current antihypertensive therapy. She will start baby aspirin now. Uterine fibroid in 06/03/2022 11/14/2024 Overview (06/20/2022): Several fibroids seen on first trimester U/S: Fibroid 1: Fundal exophytic = 7.77 x 7.66 x 13.5 cm Fibroid 2: Fundal = 4.19 x 3.61 x 4.51 cm Fibroid 3: Posterior left = 4.45 x 4.05 x 4.67 cm Fibroid in Third trimester growth at 32 wks IV access in labor CBC type and screen in labor Assessment & Plan (06/19/2022 4:30 PM EST): The largest fibroid is now 13 cm and located fundally. I explained that very large fibroids can be a risk factor for growth, PTL and PTD. Will follow growth and size of fibroid via serial ultrasounds. Obesity affecting in second trimester 05/31/2022 11/14/2024 Overview (06/20/2022): Obesity in (BMI >30) BMI at Intake 47.9 Date Obesity plan of care discussed 05/31/22 BMI > 50 (at 36 weeks or before) transfer to tertiary care * If BMI 40 or greater discuss policy w patient * first trimester screen for diabetes - HgbA1c or 1-hr glucose tolerance test (done, 5.1) * Nutrtion counseling * 06-06lb weight gain * Growth sono q 4 wks if fundal height not reliable, after 28 weeks * Induction only if indicated * PP lovenox according to guidelines Assessment & Plan (07/23/2022 9:52 PM EST): Her weight has remained stable. However, there is still a high likelihood that she will achieve a BMI of 50 before 36 weeks. Therefore, we will initiate the transfer process after the next visit. Assessment & Plan (06/19/2022 4:28 PM EST): It is highly likely that her BMI will reach 50 before the end of the . I reviewed that we recommend transfer to tertiary care center for patients with BMI's above 50. I explained that it probably makes sense for her to transfer in the second trimester as she has other risk factors that put her at risk for PTL/PTD. Assessment & Plan (05/31/2022 12:40 PM EST): Brief dietary counseling provided today and reviewed recommended weight gain of 11-20 lbs. Recommended target 150min/week of physical exercise. Reviewed hospital policy around BMI and advised it is likely a transfer of care will be recommended during her ; offered to initiate this now vs monitor throughout. Pt intends to continue care at this time. Early A1C ordered Anxiety during 05/28/2022 Overview (05/28/2022): Diagnosed a long time ago Has used prozac, clonazepam, trazodone Also sees a therapist monthly Has never been hospitalized. Remote history of self-harm Assessment & Plan (05/31/2022 12:38 PM EST): Discussed mgmt of anxiety during and reviewed current medications. Recommended against taking clonazepam regularly during and reviewed safety concerns with pt, she states she will d/c this or only use for acute panic attack PRN. Plans to stay on other meds after counseling Supervision of high risk pre gnancy in second trimester 05/28/2022 11/14/2024 Overview (06/30/2022): CINDY FUCHS No OB-CMI score has been filled out for this encounter. Group PN care? No Rh Positive GC/Chlam Negative PAP WNLs Tdap * Flu * COVID-19* Hgb * GTT * 28 wk Repeat RPR * GBS * PPBC * screening - nl cfDNA Assessment & Plan (07/23/2022 9:51 PM EST): Overall, she is doing well and has no acute complaints. All of her first trimester symptoms have resolved. Assessment & Plan (06/19/2022 4:24 PM EST): Overall, she is doing OK. Reviewed genetic screening options with her including cell free DNA and NT screening. Pros and cons of each reviewed. She has opted for cell free DNA if covered by insurance. She has no acute complaints today. Encounters Date Type Department Care Team Description 02/03/2025 3:12 PM EDT - 02/03/2025 4:45 PM EDT Emergency [facility] [address] [place] [address] Discharge Disposition: Home or Self Care 11/14/2024 3:10 PM EDT Office Visit [facility] [address] [place] [address] Alejandro Busch MD Pelvic pain (Primary Dx); Fibroids 11/14/2024 1:38 PM EDT - 11/14/2024 11:59 PM EDT Hospital Encounter [facility] [place] Ultrasound [address] [place] [address] Alejandro Busch MD [facility] [place] Discharge Disposition: Home or Self Care from Last 3 Months Immunizations Immunization Administration Dates Next Due Influenza Quadrivalent Preservative Free IM 02/2019 Family History Medical History Relation Comments Diabetes Paternal Grandfather Relation Status Comments Father Alive Maternal Grandfather Maternal Grandmother Alive Mother Alive Paternal Grandfather Paternal Grandmother Alive Sister 1 Alive Sister 2 Alive Sister 3 Alive Sister 4 Alive Sister 5 Alive Social History Tobacco Use Types Packs/Day Years Used Date Smoking Tobacco: Never Smokeless Tobacco: Never Alcohol Use Standard Drinks/Week Comments Never 0 (1 standard drink = 0.6 oz pur e alcohol) Education Answer Date Recorded Are you interested in more education? Not on annabel e 11/12/2022 Are you concerned about learning? Not on file 11/12/2022 No 11/12/2022 No 11/12/2022 Food Answer Date Recorded Within the past 6 months we worried whether our food would run out before we got money to buy more. Never True 02/03/2025 Within the past 6 months the food we bought just didn't last and we didn't have enough money to get more. Never True Residential Stability Answer Date Recor ded What is your housing situation today? I have roz sing 02/03/2025 How many times have you move d in the past 12 months? Zero (I did not move) 02/03/2025 Paying for Meds Answer Date Recorded Do you have trouble paying for medicines? No 02/03/2025 Paying Utility Bills Answer Date Record ed Do you have trouble paying your heating or elect ricity bill? No 02/03/2025 Transportation Answer Date Recorded Has the lack of transportati on kept you from medical appointments or from getting medications? No 02/03/2025 Digital Access Answer Date Recorded No 02/03/2025 Yes 02/03/2025 Do you have reliable internet access at home? Ye s 02/03/2025 Do you have a device (e.g., phone, tablet, computer) with a working camera? Yes 02/03/2025 Intimate Partner Violence Answer Date R ecorded Are you denied basic needs s uch as food, clothing, or medical care? No 02/03/2025 In the past 12 months have y ou been in a relationship with a person who hurts, threatens, or tries to control you? No 02/03/2025 Are you denied basic needs s uch as food, clothing, or medical care? No 02/03/2025 In the past 12 months have y ou been in a relationship with a person who hurts, threatens, or tries to control you? No 02/03/2025 Comments No Sex and Gender Information Value Date Recorded Sex Assigned at Female 03/03/2020 4:29 PM EDT Legal Sex Female 8:57 PM EDT Gender Identity Female 03/03/2020 4:29 PM EDT Sexual Orientation Straight 12/01/2020 3: 10 PM EDT Last Filed Vital Signs Vital Sign Reading Time Taken Comments Blood Pressure 132/87 02/03/2025 4:28 PM EDT Pulse 71 02/03/2025 4:28 PM EDT Temperature 36.3 C (97.3 F) 02/03/2025 4:28 PM EDT Respiratory Rate 16 02/03/2025 4:28 PM EDT Oxygen Saturation 99% 02/03/2025 4:28 PM EDT Inhaled Oxygen Concentration - - Weight 135.2 kg (298 lb) 02/03/2025 11:57 AM EDT Height 165.1 cm (5' 5 ) 02/03/2025 11:57 AM EDT Body Mass Index 49.59 02/03/2025 11:57 AM EDT Plan of Treatment Health Maintenance Due Date Last Done Comments DEPRESSION SCREENING 2005 PNEUMOCOCCAL VACCINES (0-49 years) (2 of 2 - PCV) 04/14/2016 04/14/2015 COVID-19 VACCINE (3 - 2023-2 5 season) 2024 05/19/2021, 04/28/2021 PAP SMEAR 06/18/2025 06/18/2022 Adult Td,Tdap Booster 10/15/2032 10/15/2022 , 03/13/2009 HEPATITIS C SCREENING Completed 05/28/2022 HIV ONE-TIME SCREENING (18-6 5 YEARS) Completed 05/28/2022 SMOKING STATUS SCREENING (On ce After 26 Yrs) Completed 02/03/2025 HEPATITIS A VACCINES Aged Out No long er eligible based on patient's age to complete this topic HIB VACCINES Aged Out No longer eligi ble based on patient's age to complete this topic MENINGOCOCCAL VACCINES (ACWY) Aged Out No longer eligible based on patient's age to complete this topic MENINGOCOCCAL VACCINES (B) Aged Out N o longer eligible based on patient's age to complete this topic Medical Devices Not on file Procedures Procedure Name Priority Date/Time Associated Diagnosis Comments US PELVIS TRANSABDOMINAL PLUS TRANSVAGINAL Routine 11/14/2024 2:30 PM EDT Pelvic pain PAP TEST Routine 06/18/2022 12:00 AM EST HEPATITIS C ANTIBODY, QUALITATIVE Routine 05/28/2022 12:47 PM EST Need for hepatitis C screening test from Last 3 Months or Most Recently Relevant to Health Maintenance Results * US PELVIS TRANSABDOMINAL PLUS TRANSVAGINAL (11/14/2024 2:30 PM EDT) Anatomical Region Laterality Modality Pelvis, Uterus/Adnexa Ultrasound 11/14/2024 2:31 PM EDT Impressions 11/15/2024 4:37 PM EDT The ovaries are unremarkable. There are multiple fibroids as described below. The largest appears to be fundal and pedunculated. The endometrium measures 8 mm, and there are no obvious focal masses within. Narrative 11/15/2024 4:37 PM EDT US PELVIS TRANSABDOMINAL AND TRANSVAGINAL Referring clinician's provided indication for this examination in Epic: Pain Procedure: US PELVIS TRANSABDOMINAL AND TRANSVAGINAL 11/14/2024 1:56 PM US Indications: Pain. HX Fibroids Comparison: No relevant recent comparisons. Technique: Transabdominal sonography of the pelvis was performed. In addition, transvaginal imaging was performed to better evaluate the adnexae and ovaries. Color Doppler imaging was performed to assess vascularity. No 3-D images were acquired. Reported LMP: FINDINGS: Uterus: The uterus measurements acquired; 15.64 cm x 5.58 cm x 6.06 cm with volume of 276.91 ml. The uterus is anteverted in its positioning. The myometrium is heterogeneous with fibroids located fundal pedunculated 7.6 x 5.1 x 5.8 cm compared to 5.9 x 6.6 x 6.6 cm, posterior 3.8 x 3.2 x 2.7 cm compared to 2.9 x 2.5 x 2.6 cm, posterior fundal 4.4 x 3.1 x 3.2 cm compared to 2.2 x 2.0 x 2.1 cm and anterior 2.8 x 1.3 x 2.4 cm compared to 2.8 x 2.7 x 3.1 cm. Endometrium: The endometrium measures 0.76 cm and appears grossly normal. No endometrial masses. No fluid is identified within the endometrial canal. No focal cervical masses. Ovaries: The right ovary measures 2.12 cm x 1.68 cm x 1.43 cm with volume of 2.67 ml. Appears grossly normal Right Adnexa: wnl The left ovary measures 3.91 cm x 3.19 cm x 2.02 cm with volume of 13.19 ml. Appears grossly normal Left Adnexa: wnl Cul de Sac: There is no evidence of free pelvic fluid. Tech Comments: Procedure Note Saulo Burrows MD - 11/15/2024 US PELVIS TRANSABDOMINAL AND TRANSVAGINAL Referring clinician's provided indication for this examination in Epic:Pain Procedure: US PELVIS TRANSABDOMINAL AND TRANSVAGINAL 11/14/2024 1:56 PM US Indications: Pain. HX Fibroids Comparison: No relevant recent comparisons. Technique: Transabdominal sonography of the pelvis was performed. Inaddition, transvaginal imaging was performed to better evaluate theadnexae and ovaries. Color Doppler imaging was performed to assessvascularity. No 3-D images were acquired. Reported LMP: FINDINGS: Uterus: The uterus measurements acquired; 15.64 cm x 5.58 cm x 6.06 cm with volumeof 276.91 ml. The uterus is anteverted in its positioning. Themyometrium is heterogeneous with fibroids located fundal pedunculated 7.6 x 5.1 x 5.8 cm compared to5.9 x 6.6 x 6.6 cm, posterior 3.8 x 3.2 x 2.7 cm compared to 2.9 x 2.5 x2.6 cm, posterior fundal 4.4 x 3.1 x 3.2 cm compared to 2.2 x 2.0 x 2.1 cmand anterior 2.8 x 1.3 x 2.4 cm compared to 2.8 x 2.7 x 3.1 cm. Endometrium: The endometrium measures 0.76 cm and appears grossly normal. Noendometrial masses. No fluid is identified within the endometrialcanal. No focal cervical masses. Ovaries: The right ovary measures 2.12 cm x 1.68 cm x 1.43 cm with volume of 2.67ml. Appears grossly normal Right Adnexa: wnl The left ovary measures 3.91 cm x 3.19 cm x 2.02 cm with volume of 13.19ml. Appears grossly normal Left Adnexa: wnl Cul de Sac: There is no evidence of free pelvic fluid. Tech Comments: IMPRESSION: The ovaries are unremarkable. There are multiple fibroids as describedbelow. The largest appears to be fundal and pedunculated. Theendometrium measures 8 mm, and there are no obvious focal masses within. Alejandro Busch MD [facility] PELVIS Final Result * Pap Smear (06/18/2022 12:00 AM EST) 06/18/2022 06/21/2022 9:2 2 AM EST Narrative SEE NARRATIVE - 06/23/2022 4:06 [place] [id number] Roof Designer: Deborah Colin MD KERRICK KLEANER OPERATOR Cytology Report FINAL DIAGNOSIS A. PAP SMEAR (SUREPATH) CE: SPECIMEN ADEQUACY: Satisfactory for evaluation; transformation zone present. INTERPRETATION: NEGATIVE FOR INTRAEPITHELIAL LESION OR MALIGNANCY. Coccobacilli consistent with shift in ap Electronically Signed Out By: TOYIN Smith(ASCP) The Pap test is a screening test primarily for squamous cancers and precursors and has associated false-negative and false-positive results. New technologies such as liquid-based preparations may decrease but will not eliminate all false-negative results. Regular sampling and follow-up of unexplained clinical signs and symptoms are recommended to minimize false negative results. CLINICAL HISTORY Date of Last Menstrual Period: Not Provided Menstrual History: Other Clinical Conditions: Screening Pap SPECIMEN SOURCE A: PAP SMEAR (SUREPATH) CE Patient Name: CALVIN LAND : 1995 (Age: 27) Sex: F Institution: [facility] Location: [facility] Date of Collection: 06/18/2022 Date of Reported: 06/23/2022 16:06 Results to: Aleajndro Busch MD, BS us Alejandro Busch MD CYTOLOGY ORDERABLES Final Res ult SEE NARRATIVE * Hepatitis C antibody, qualitative (05/28/2022 12:47 PM EST) HCV NON-REACTIV E NON-REACTI VE [facility] Blood 05/28/2022 12:4 7 PM EST 05/28/2022 12:50 PM EST us Alyssa Hernández CNM LAB BLOOD ORDERABLES Final Resul t [facility] [address] [place] [address] from Last 3 Months or Most Recently Relevant to Health Maintenance Insurance C3 ACO C3 ACO C3 ACO C3 ACO C3 ACO C3 ACO C3 ACO C[address] [place] [address] [place] [address] C3 ACO Care Teams Ski Binding Fitter And Repairer Relationship Specialty Start Date End Date Sarai Plata MD [address] [place] [phone] PCP - General Internal Medicine 12/12/20 Additional Source Comments The information contained in this document represents components of the legal health record. It is not the complete legal health record.[facility]
[2025-02-04 16:34] LABS: Hemoglobin A1C 120.3801 umol/L; Total Hemoglobin (HGBA1C) 3311.9293 umol/L
== END 2025-02-04 15:07 | disposition home or self-care (01) ==
LOC: HO.HHCL 15:06
PROVIDERS: PCP Internal Medicine; Visit Provider Registered Nurse
DX: R21 Rash and other nonspecific skin eruption (principal)
CPT/HCPCS: 36415; 83036

== ENCOUNTER 2025-02-27 12:11 | Outpatient (REF) | payer MEDICAID, SELFPAY ==
--- NOTE | ~2025-02-27 | MM_ITS ---
EXAMINATION: MM DIAGNOSTIC DIGITAL BREAST TOMOSYNTHESIS, BILATERAL Limited left breast ultrasound. CLINICAL INFORMATION: Palpable left breast lump central inner breast anterior depth for 2 months. COMPARISON: Mammography: Comparison is made with relevant prior exams. TECHNIQUE: Digital breast mammography with tomosynthesis is performed in both the craniocaudal and mediolateral oblique views along with computer-aided detection (CAD). FINDINGS: There are scattered areas of fibroglandular density (ACR BI-RADS breast composition Category b). Right: There are no significant masses, abnormal calcifications, or other abnormalities. Left: BB marker in the central inner breast anterior depth without underlying abnormal finding at site of patient's palpable lump. Targeted color Doppler ultrasound scanning in the area the patient's palpable lump from 7-11 o'clock demonstrates normal fibroglandular breast tissue. There is no sonographic abnormal findings. Results are provided to the patient at time of visit by the technologist. MM/MM tomosynthesis diagnostic BI IMPRESSION: Left: No mammographic or sonographic abnormal finding in the left breast to account for the patient's left breast palpable lump. Recommend clinical evaluation and follow-up. Right: Negative. ASSESSMENT: BI-RADS BI-RADS 1 - Negative RECOMMENDATION: Recommend clinical evaluation and follow-up. Electronically signed by: Kaycee Abdi DO 02/27/2025 01:08 PM EDT
--- OUTSIDE RECORDS SUMMARY | 2025-02-27 12:53 | XMS_ITS | Clinical Summary ---
Author Organization [facility] Address [address] [place] [phone] Phone Care Team Providers Care Network Mgr Name Role Phone Sarai Plata MD Primary Care Provider Allergies No known active allergies Medications ,calc61- [id number]-[id number] 28 mg-975 mcg- 200 mg Cmpk Take [...] her referral to the fibroid center at [facility] to consider laparoscopic removal. At the [...] via virtual visit with assistance from live tiller man. 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 Await [...] elevated BP in her early 20s in [place], briefly took meds but did not follow [...] 4:45 PM EDT Emergency [facility] [address] [place] [address] Discharge Disposition: Home or Self Care from [...] your housing situation today? I have roz irvin 02/03/2025 How many times have you move [...] Procedure Name Priority Date/Time Associated Diagnosis Comments PAP TEST Routine 06/18/2022 12:00 AM EST HEPATITIS C ANTIBODY, QUALITATIVE Routine 05/28/2022 12:47 PM EST Need for hepatitis C screening test from Last 3 Months or Most Recently Relevant to Health Maintenance Results * Pap Smear (06/18/2022 12:00 AM EST) 06/18/2022 06/21/2022 9:2 2 AM EST Narrative SEE NARRATIVE - 06/23/2022 4:06 PM EST [address] [id number] Refractory Manager: Deborah Colin MD [employer] Cytology Report FINAL DIAGNOSIS A. PAP SMEAR (SUREPATH) CE: SPECIMEN ADEQUACY: Satisfactory for evaluation; transformation zone present. INTERPRETATION: NEGATIVE FOR INTRAEPITHELIAL LESION OR MALIGNANCY. Coccobacilli consistent with shift in ap Electronically Signed Out By: Jude Perry CT(ASCP) The Pap test is a screening test [...] A: PAP SMEAR (SUREPATH) CE Patient Name: JESUS MICHAEL CALVIN : 1995 (Age: 27) Sex: F Institution: [facility] Location: [facility] Date of Collection: 06/18/2022 Date of Reported: 06/23/2022 16:06 Results to: Alejandro Busch MD, BS us Alejandro Busch MD CYTOLOGY ORDERABLES Final Res ult Performing Organization Address City/[facility] Co de Phone Number SEE NARRATIVE * Hepatitis C antibody, qualitative (05/28/2022 12:47 PM EST) HCV NON-REACTIV E NON-REACTI VE [facility] Blood 05/28/2022 12:4 7 PM EST 05/28/2022 12:50 PM EST Alyssa Hernández CNM LAB BLOOD ORDERABLES Final Resul t Performing Organization Address City/[facility] Co de Phone Number [facility] [address] [place] [address] from Last 3 Months or Most Recently Relevant to Health Maintenance Insurance C3 ACO C3 ACO C3 ACO C3 ACO C3 ACO C3 ACO C3 ACO C3 ACO C3 ACO Care Teams Network Mgr Relationship Specialty Start Date End Date Sarai Plata MD [address] [place] [phone] PCP - General Internal Medicine 12/12/20 Additional Source Comments The information contained in this document represents components of the legal health record. It is not the complete legal health record.[facility]
--- OUTSIDE RECORDS SUMMARY | 2025-02-27 12:53 | XMS_ITS | Encounter Summary ---
Author Organization [facility] Address [address] [place] [address] [address] [place] [address] Care Team Providers Care Mixer Foam Rubber Name Role Phone Sarai Plata MD Primary Care Provide r Encounter Details Date Type Department Care Team (Late st Contact Info) Description 04/18/2023 Abstract [facility] MEDICINE [address] [place] [address] [phone] Sarai Plata MD [address] [place] [address] [phone] Social History Tobacco Use Types Packs/Day Years [...] 1:15 PM EDT Office Visit [facility] MEDICINE [address] [place] [address] [phone] Sarai Plata MD [address] [place] [address] [phone] documented as of this encounter Procedures Procedure [...] documented as of this encounter Care Teams Mixer Foam Rubber Relationship Specialty Start Date End Date Sarai Plata MD [address] [place] [phone] PCP - General Family Medicine 03/29/18 documented as of this encounter
== END 2025-02-27 12:12 | disposition home or self-care (01) ==
LOC: HO.MAMMO 12:11
PROVIDERS: PCP Internal Medicine; Visit Provider Nurse Practitioner Family
DX: Z12.31 Encounter for screening mammogram for malignant neoplasm of breast (principal); N63.24 Unspecified lump in the left breast, lower inner quadrant
CPT/HCPCS: 76642; 77062; 77066

== ENCOUNTER → 2025-02-27 12:30 | Outpatient (BNV) | payer MEDICAID, SELFPAY | PROVIDERS: PCP Internal Medicine; Visit Provider Internal Medicine | DX: N63.25 Unspecified lump in the left breast, overlapping quadrants (principal) | CPT/HCPCS: 76642; 77062; 77066 ==